=== PATIENT | female | born 1945 | race African-American/Black ===

== ENCOUNTER → 2016-08-14 | Outpatient (CLI) | payer OTHER ==
[~2016-08-14] MED LIST: ATOR20TA PO; LISI10TA6 PO; MELO7.5S PO; NOR10T PO; PRAV20TA3 PO
[2016-08-14 13:21] LABS: Basophils # (auto) 0 uL; Basophils % (auto) 0.6 % (0.0-2.0); Eosinophils # (auto) 0 uL; Eosinophils % (auto) 0.4 % (0.0-7.0); Hematocrit 41.7 % (36.0-46.0); Hemoglobin 13.4 g/dL (12.2-16.2); Lymphocytes # (auto) 1.9 uL; Lymphocytes % (auto) 33.6 % (10.0-50.0); Mean Corpuscular Hemoglobin 30.4 pg (28.0-32.0); Mean Corpuscular Hgb Conc. 32.1 g/dL (32.0-36.0); Mean Corpuscular Volume 94.7 fL (80.0-100.0); Mean Platelet Volume 7.4 fL (7.4-10.4); Monocytes # (auto) 0.4 uL; Monocytes % (auto) 6.5 % (0.0-12.0); Neutrophils # (auto) 3.3 uL; Neutrophils % (auto) 58.9 % (37.0-80.0); Platelet Count (auto) 313 10^3/uL (140-450); Red Cell Distribution Width 13.8 % (11.6-16.0); White Blood Cell 5.6 10^3/uL (4.4-10.8)
[2016-08-14 13:47] LABS: Albumin 3.7 g/dL (3.4-5.0); BUN/Creatinine Ratio 22.4; Bilirubin, Total 0.5 mg/dL (0.2-1.0); Potassium 3.8 mmol/L (3.5-5.1); Total Protein 7.4 g/dL (6.4-8.2)
== END | disposition home or self-care (01) ==
LOC: LAB 12:28
PROVIDERS: ATTEND Internal Medicine
DX: I10 Essential (primary) hypertension (principal)
CPT/HCPCS: 36415; 80053; 85025; 86141

== ENCOUNTER → 2017-04-12 | Outpatient (CLI) | payer OTHER ==
[2017-04-12 10:02] LABS: Basophils # (auto) 0 uL; Basophils % (auto) 0.9 % (0.0-2.0); Eosinophils # (auto) 0 uL; Eosinophils % (auto) 0.7 % (0.0-7.0); Hemoglobin 12.5 g/dL (12.2-16.2); Lymphocytes # (auto) 1.4 uL; Mean Corpuscular Hemoglobin 31.8 pg (28.0-32.0); Mean Corpuscular Hgb Conc. 33.9 g/dL (32.0-36.0); Mean Platelet Volume 6.8 fL (7.4-10.4); Monocytes # (auto) 0.3 uL; Monocytes % (auto) 8.1 % (0.0-12.0); Neutrophils # (auto) 2.4 uL; Neutrophils % (auto) 56.3 % (37.0-80.0); Nucleated Red Blood Cells % 0.1 %; Platelet Count (auto) 228 10^3/uL (140-450); Red Cell Distribution Width 14.1 % (11.6-16.0); White Blood Cell 4.2 10^3/uL (4.4-10.8)
[2017-04-12 10:50] LABS: Urine Bilirubin Negative (Negative); Urine Blood Negative /uL (Negative); Urine Color Yellow (Yellow); Urine Glucose Normal (Normal); Urine Ketone Negative (Negative); Urine Mucus FEW (None Seen); Urine Nitrite Negative (Negative); Urine RBC 2 /hpf (0 - 4); Urine Squamous Epithelial Cell FEW /hpf (<5); Urine Urobilinogen Normal (Negative)
[2017-04-12 10:59] LABS: Albumin 3.6 g/dL (3.4-5.0); BUN/Creatinine Ratio 26.4; Bilirubin, Total 0.3 mg/dL (0.2-1.0); Calcium 8.7 mg/dL (8.5-10.1); Potassium 3.8 mmol/L (3.5-5.1); Total Protein 7.3 g/dL (6.4-8.2)
[2017-04-13 09:12] LABS: Rheumatoid Arthritis Factor 58.2 IU/mL (0.0-13.9)
== END | disposition home or self-care (01) ==
LOC: LAB 09:38
PROVIDERS: ATTEND Internal Medicine
DX: Z12.11 Encounter for screening for malignant neoplasm of colon (principal); E78.00 Pure hypercholesterolemia, unspecified; M25.50 Pain in unspecified joint; I10 Essential (primary) hypertension
CPT/HCPCS: 36415; 80053; 80061; 81001; 82043; 84439; 84443; 85025; 85652; 86038; 86431

== ENCOUNTER → 2017-06-11 | Outpatient (CLI) | payer OTHER ==
[2017-06-11 12:21] LABS: Alcohol, Urine < 3.0 mg/dL (0-5); Amphetamine Screen, Urine NEGATIVE (NEGATIVE); Barbiturate Scree,Urine NEGATIVE (NEGATIVE); Benzodiazephine Screen, Urine NEGATIVE (NEGATIVE); Cannabinoid Screen, Urine NEGATIVE (NEGATIVE); Cocaine Screen, Urine NEGATIVE (NEGATIVE); Opiate Scree,Urine NEGATIVE (NEGATIVE); Phencyclidine Screen, Urine NEGATIVE (NEGATIVE)
== END | disposition home or self-care (01) ==
LOC: LAB 10:11
PROVIDERS: ATTEND Internal Medicine
DX: G89.29 Other chronic pain (principal); F11.90 Opioid use, unspecified, uncomplicated; I10 Essential (primary) hypertension
CPT/HCPCS: 80307

== ENCOUNTER → 2017-06-18 | Outpatient (CLI) | payer OTHER | END | disposition home or self-care (01) | LOC: LAB 10:45 | PROVIDERS: ATTEND Internal Medicine | DX: I10 Essential (primary) hypertension (principal); F11.90 Opioid use, unspecified, uncomplicated | CPT/HCPCS: 80307 ==

== ENCOUNTER → 2017-07-09 | Outpatient (CLI) | payer OTHER | END | disposition home or self-care (01) | LOC: LAB 12:03 | PROVIDERS: ATTEND Internal Medicine | DX: G89.29 Other chronic pain (principal); F11.90 Opioid use, unspecified, uncomplicated | CPT/HCPCS: 80307 ==

== ENCOUNTER → 2017-07-16 | Outpatient (CLI) | payer OTHER | END | disposition home or self-care (01) | LOC: LAB 10:09 | PROVIDERS: ATTEND Internal Medicine | DX: I10 Essential (primary) hypertension (principal); E78.4 Other hyperlipidemia; I50.32 Chronic diastolic (congestive) heart failure | CPT/HCPCS: 80307 ==

== ENCOUNTER → 2017-09-09 | Outpatient (CLI) | payer OTHER ==
[2017-09-09 11:58] LABS: Basophils # (auto) 0 uL; Basophils % (auto) 0.9 % (0.0-2.0); Eosinophils # (auto) 0 uL; Eosinophils % (auto) 0.5 % (0.0-7.0); Hematocrit 40.2 % (36.0-46.0); Hemoglobin 13.4 g/dL (12.2-16.2); Lymphocytes # (auto) 1.7 uL; Lymphocytes % (auto) 31.2 % (10.0-50.0); Mean Corpuscular Hemoglobin 31.3 pg (28.0-32.0); Mean Corpuscular Hgb Conc. 33.4 g/dL (32.0-36.0); Mean Corpuscular Volume 93.8 fL (80.0-100.0); Monocytes # (auto) 0.4 uL; Monocytes % (auto) 6.9 % (0.0-12.0); Neutrophils # (auto) 3.3 uL; Neutrophils % (auto) 60.5 % (37.0-80.0); Nucleated Red Blood Cells % 0.1 %; Platelet Count (auto) 201 10^3/uL (140-450); Red Blood Cells 4.28 10^6/uL (4.0-5.20); Red Cell Distribution Width 13.8 % (11.8-14.3); White Blood Cell 5.4 10^3/uL (4.4-10.8)
[2017-09-09 13:41] LABS: Albumin 3.7 g/dL (3.4-5.0); BUN/Creatinine Ratio 22.7; Bilirubin, Total 0.4 mg/dL (0.2-1.0); CRP High Sensitivity 1.25 mg/dL (< 0.3); Calcium 8.8 mg/dL (8.5-10.1); Potassium 3.5 mmol/L (3.5-5.1); Total Protein 7.7 g/dL (6.4-8.2)
== END | disposition home or self-care (01) ==
LOC: LAB 11:09
PROVIDERS: ATTEND Internal Medicine
DX: I10 Essential (primary) hypertension (principal); M25.50 Pain in unspecified joint
CPT/HCPCS: 36415; 80053; 85025; 86141

== ENCOUNTER 2017-11-04 08:42 | Emergency (ER) | payer OTHER ==
[~2017-11-04] VITALS: Ht 160 cm; Wt 90.7 kg
[2017-11-04 09:36] LABS: Urine Bacteria FEW /hpf (None Seen); Urine Blood 1+ /uL (Negative); Urine Specific Gravity 1.022 (1.001-1.035); Urine WBC 2 /hpf (0 - 5)
[2017-11-04 09:40] LABS: Basophils # (auto) 0 uL; Basophils % (auto) 0.7 % (0.0-2.0); Eosinophils # (auto) 0 uL; Eosinophils % (auto) 0.5 % (0.0-7.0); Hematocrit 38.9 % (36.0-46.0); Lymphocytes # (auto) 1.1 uL; Lymphocytes % (auto) 25.8 % (10.0-50.0); Mean Corpuscular Hemoglobin 31.4 pg (28.0-32.0); Mean Corpuscular Hgb Conc. 33.4 g/dL (32.0-36.0); Mean Corpuscular Volume 93.8 fL (80.0-100.0); Monocytes # (auto) 0.4 uL; Monocytes % (auto) 8.5 % (0.0-12.0); Neutrophils # (auto) 2.9 uL; Neutrophils % (auto) 64.5 % (37.0-80.0); Platelet Count (auto) 238 10^3/uL (140-450); Red Blood Cells 4.14 10^6/uL (4.0-5.20); Red Cell Distribution Width 14.1 % (11.8-14.3); White Blood Cell 4.4 10^3/uL (4.4-10.8)
[2017-11-04 09:59] LABS: Albumin 3.6 g/dL (3.4-5.0); BUN/Creatinine Ratio 29.3; Bilirubin, Total 0.4 mg/dL (0.2-1.0); Calcium 8.4 mg/dL (8.5-10.1); Potassium 3.6 mmol/L (3.5-5.1); Total Protein 7.2 g/dL (6.4-8.2)
[2017-11-04 10:27] VITALS: BP 116/71
== END 2017-11-04 11:06 | disposition home or self-care (01) ==
LOC: ER 08:42
DX: D25.9 Leiomyoma of uterus, unspecified (principal); I10 Essential (primary) hypertension; E78.5 Hyperlipidemia, unspecified; G89.29 Other chronic pain; M54.5 Low back pain
CPT/HCPCS: 36415; 74176; 80053; 81001; 85025

== ENCOUNTER → 2018-04-11 | Outpatient (CLI) | payer OTHER ==
[2018-04-11 11:25] LABS: Urine Bacteria FEW /hpf (None Seen); Urine Blood Negative /uL (Negative); Urine Specific Gravity 1.022 (1.001-1.035); Urine WBC 1 /hpf (0 - 5)
[2018-04-11 12:27] LABS: Basophils # (auto) 0 uL; Basophils % (auto) 0.8 % (0.0-2.0); Eosinophils # (auto) 0 uL; Eosinophils % (auto) 0.4 % (0.0-7.0); Hematocrit 39.8 % (36.0-46.0); Hemoglobin 13.8 g/dL (12.2-16.2); Lymphocytes # (auto) 1.5 uL; Lymphocytes % (auto) 34.7 % (10.0-50.0); Mean Corpuscular Hemoglobin 32.3 pg (28.0-32.0); Mean Corpuscular Hgb Conc. 34.5 g/dL (32.0-36.0); Mean Corpuscular Volume 93.5 fL (80.0-100.0); Monocytes # (auto) 0.3 uL; Monocytes % (auto) 7.6 % (0.0-12.0); Neutrophils # (auto) 2.5 uL; Neutrophils % (auto) 56.5 % (37.0-80.0); Nucleated Red Blood Cells % 0.2 %; Platelet Count (auto) 258 10^3/uL (140-450); Red Blood Cells 4.26 10^6/uL (4.0-5.20); Red Cell Distribution Width 13.7 % (11.8-14.3); White Blood Cell 4.4 10^3/uL (4.4-10.8)
[2018-04-11 13:12] LABS: Albumin 3.7 g/dL (3.4-5.0); BUN/Creatinine Ratio 26.5; Bilirubin, Total 0.3 mg/dL (0.2-1.0); CRP High Sensitivity 1.79 mg/dL (< 0.3); Calcium 8.8 mg/dL (8.5-10.1); Potassium 3.5 mmol/L (3.5-5.1); Total Protein 7.8 g/dL (6.4-8.2)
== END | disposition home or self-care (01) ==
LOC: LAB 10:46
PROVIDERS: ATTEND Internal Medicine
DX: I10 Essential (primary) hypertension (principal); E78.5 Hyperlipidemia, unspecified; M25.50 Pain in unspecified joint
CPT/HCPCS: 36415; 80053; 80061; 81001; 82043; 84439; 84443; 85025; 85652; 86141; 86200; 86431

== ENCOUNTER → 2018-10-08 | Outpatient (CLI) | payer OTHER ==
[2018-10-08 10:00] LABS: Basophils # (auto) 0 uL; Basophils % (auto) 0.7 % (0.0-2.0); Eosinophils # (auto) 0 uL; Eosinophils % (auto) 0.8 % (0.0-7.0); Hematocrit 39.1 % (36.0-46.0); Lymphocytes # (auto) 1.5 uL; Lymphocytes % (auto) 33.6 % (10.0-50.0); Mean Corpuscular Hemoglobin 31.2 pg (28.0-32.0); Mean Corpuscular Hgb Conc. 33.2 g/dL (32.0-36.0); Mean Corpuscular Volume 93.9 fL (80.0-100.0); Monocytes # (auto) 0.4 uL; Neutrophils # (auto) 2.5 uL; Neutrophils % (auto) 55.9 % (37.0-80.0); Platelet Count (auto) 239 10^3/uL (140-450); Red Blood Cells 4.16 10^6/uL (4.0-5.20); Red Cell Distribution Width 14.3 % (11.8-14.3); White Blood Cell 4.5 10^3/uL (4.4-10.8)
[2018-10-08 10:45] LABS: Albumin 3.5 g/dL (3.4-5.0); BUN/Creatinine Ratio 33.3; Bilirubin, Total 0.3 mg/dL (0.2-1.0); Calcium 8.8 mg/dL (8.5-10.1); Total Protein 7.3 g/dL (6.4-8.2)
[2018-10-08 10:48] LABS: Potassium 4.2 mmol/L (3.5-5.1)
== END | disposition home or self-care (01) ==
LOC: LAB 09:40
PROVIDERS: ATTEND Internal Medicine
DX: E04.9 Nontoxic goiter, unspecified (principal); E78.5 Hyperlipidemia, unspecified; I10 Essential (primary) hypertension
CPT/HCPCS: 36415; 80053; 80061; 84439; 84443; 85025

== ENCOUNTER → 2019-03-16 | Outpatient (CLI) | payer OTHER | END | disposition home or self-care (01) | LOC: LAB 15:57 | PROVIDERS: ATTEND Internal Medicine | DX: L72.3 Sebaceous cyst (principal); R10.9 Unspecified abdominal pain | CPT/HCPCS: 82270; 87077; 87186; 87205 ==

== ENCOUNTER → 2020-09-16 | Outpatient (CLI) | payer OTHER ==
[~2020-09-16] MED LIST changes: +LISI-648 PO; -LISI10TA6 PO
[2020-09-16 11:15] LABS: Basophils # (auto) 0 10 ^3/uL (0-0.2); Basophils % (auto) 0.5 % (0.0-2.0); Eosinophils # (auto) 0 10 ^3/uL (0-0.8); Eosinophils % (auto) 0.8 % (0.0-7.0); Hematocrit 33.3 % (36.0-46.0); Hemoglobin 11.3 g/dL (12.2-16.2); Lymphocytes # (auto) 1.6 10 ^3/uL (0.4-5.4); Lymphocytes % (auto) 31.8 % (10.0-50.0); Mean Corpuscular Hemoglobin 31.7 pg (28.0-32.0); Mean Corpuscular Hgb Conc. 33.9 g/dL (32.0-36.0); Mean Corpuscular Volume 93.7 fL (80.0-100.0); Monocytes # (auto) 0.5 10 ^3/uL (0-1.3); Monocytes % (auto) 9.5 % (0.0-12.0); Neutrophils # (auto) 2.9 10 ^3/uL (1.6-8.6); Neutrophils % (auto) 57.4 % (37.0-80.0); Nucleated Red Blood Cells % 0.1 %; Platelet Count (auto) 245 10^3/uL (140-450); Red Blood Cells 3.56 10^6/uL (4.0-5.20); Red Cell Distribution Width 13.7 % (11.8-14.3)
[2020-09-16 11:38] LABS: Urine Bacteria NONE SEEN /hpf (None Seen); Urine Blood Negative /uL (Negative); Urine Specific Gravity 1.007 (1.001-1.035); Urine WBC 3 /hpf (0 - 5)
[2020-09-16 11:49] LABS: Potassium 3.5 mmol/L (3.5-5.1)
[2020-09-16 11:58] LABS: Albumin 3.5 g/dL (3.4-5.0); BUN/Creatinine Ratio 16.5; Bilirubin, Total 0.4 mg/dL (0.2-1.0); Calcium 8.4 mg/dL (8.5-10.1); Total Protein 7.1 g/dL (6.4-8.2)
== END | disposition home or self-care (01) ==
LOC: LAB 10:45
PROVIDERS: ATTEND Internal Medicine
DX: I10 Essential (primary) hypertension (principal); R35.1 Nocturia; R60.0 Localized edema
CPT/HCPCS: 36415; 80053; 80061; 81001; 83036; 84439; 84443; 85025; 85652

== ENCOUNTER → 2020-09-29 | Outpatient (CLI) | payer OTHER ==
[~2020-09-29] MED LIST changes: +ASPI1TAB19 PO; +FURO40TA4 PO; +HYDR50TA15 PO; +LISI-285 PO; +PERCOT PO
[2020-09-29 16:27] LABS: Albumin 3.6 g/dL (3.4-5.0); Potassium 3.2 mmol/L (3.5-5.1)
[2020-09-29 16:30] LABS: BUN/Creatinine Ratio 15.5; Bilirubin, Total 0.3 mg/dL (0.2-1.0); Total Protein 7.2 g/dL (6.4-8.2)
== END | disposition home or self-care (01) ==
LOC: LAB 15:27
PROVIDERS: ATTEND Internal Medicine
DX: I10 Essential (primary) hypertension (principal)
CPT/HCPCS: 36415; 80053

== ENCOUNTER → 2020-10-11 | Outpatient (CLI) | payer OTHER ==
[~2020-10-11] MED LIST changes: -ATOR20TA PO; -LISI-648 PO; -MELO7.5S PO; -NOR10T PO
[2020-10-11 16:21] LABS: Basophils # (auto) 0 10 ^3/uL (0-0.2); Basophils % (auto) 0.6 % (0.0-2.0); Eosinophils # (auto) 0 10 ^3/uL (0-0.8); Eosinophils % (auto) 0.5 % (0.0-7.0); Hematocrit 29.9 % (36.0-46.0); Hemoglobin 10.3 g/dL (12.2-16.2); Lymphocytes # (auto) 1.2 10 ^3/uL (0.4-5.4); Lymphocytes % (auto) 21.2 % (10.0-50.0); Mean Corpuscular Hemoglobin 31.7 pg (28.0-32.0); Mean Corpuscular Hgb Conc. 34.5 g/dL (32.0-36.0); Mean Corpuscular Volume 91.8 fL (80.0-100.0); Monocytes # (auto) 0.6 10 ^3/uL (0-1.3); Monocytes % (auto) 10.2 % (0.0-12.0); Neutrophils # (auto) 3.9 10 ^3/uL (1.6-8.6); Neutrophils % (auto) 67.5 % (37.0-80.0); Nucleated Red Blood Cells % 0.1 %; Platelet Count (auto) 243 10^3/uL (140-450); Red Blood Cells 3.26 10^6/uL (4.0-5.20); Red Cell Distribution Width 12.9 % (11.8-14.3); White Blood Cell 5.7 10^3/uL (4.4-10.8)
[2020-10-11 17:43] LABS: BUN/Creatinine Ratio 18.6; Calcium 8.3 mg/dL (8.5-10.1); Potassium 3.4 mmol/L (3.5-5.1)
== END | disposition home or self-care (01) ==
LOC: LAB 15:39
PROVIDERS: ATTEND Internal Medicine
DX: I10 Essential (primary) hypertension (principal)
CPT/HCPCS: 36415; 80048; 85025

== ENCOUNTER → 2020-10-20 | Outpatient (CLI) | payer OTHER ==
[~2020-10-20] MED LIST changes: +IOHEXOL 300 MG/ML 100ML BOTTLE IJ ONE; +LIDOCAINE 2%HCL (LOCAL ANESTH.) INJ 20ML MDV ONE
== END | disposition home or self-care (01) ==
LOC: XYW 15:10
PROVIDERS: ATTEND Internal Medicine
DX: T83.098A Other mechanical complication of other urinary catheter, initial encounter (principal); Z98.890 Other specified postprocedural states; Z79.899 Other long term (current) drug therapy
CPT/HCPCS: 50435; Q9967; 75984; 76000

== ENCOUNTER 2020-10-21 08:19 | Emergency (ER) | payer OTHER ==
[~2020-10-21] VITALS: Ht 157.5 cm; Wt 77.6 kg
[~2020-10-21 08:19] MED LIST changes: -IOHEXOL 300 MG/ML 100ML BOTTLE IJ ONE; -LIDOCAINE 2%HCL (LOCAL ANESTH.) INJ 20ML MDV ONE
[2020-10-21 09:44] LABS: Basophils # (auto) 0 10 ^3/uL (0-0.2); Basophils % (auto) 0.5 % (0.0-2.0); Eosinophils # (auto) 0 10 ^3/uL (0-0.8); Hematocrit 27.4 % (36.0-46.0); Hemoglobin 9.3 g/dL (12.2-16.2); Lymphocytes # (auto) 0.9 10 ^3/uL (0.4-5.4); Lymphocytes % (auto) 19.9 % (10.0-50.0); Mean Corpuscular Hemoglobin 32.2 pg (28.0-32.0); Mean Corpuscular Hgb Conc. 33.7 g/dL (32.0-36.0); Mean Corpuscular Volume 95.5 fL (80.0-100.0); Monocytes # (auto) 0.5 10 ^3/uL (0-1.3); Monocytes % (auto) 11.3 % (0.0-12.0); Neutrophils % (auto) 67.3 % (37.0-80.0); Platelet Count (auto) 229 10^3/uL (140-450); Red Blood Cells 2.87 10^6/uL (4.0-5.20); Red Cell Distribution Width 14.2 % (11.8-14.3); White Blood Cell 4.5 10^3/uL (4.4-10.8)
[2020-10-21 09:52] LABS: Albumin 3.2 g/dL (3.4-5.0); Calcium 8.2 mg/dL (8.5-10.1); Potassium 3.4 mmol/L (3.5-5.1)
[2020-10-21 09:57] LABS: BUN/Creatinine Ratio 16.7; Bilirubin, Total 0.4 mg/dL (0.2-1.0); Total Protein 6.6 g/dL (6.4-8.2)
[2020-10-21 10:06] LABS: INR 1.04 (0.9-1.15); Partial Thromboplastin Time 23.7 sec (23.0-31.2)
[2020-10-21 13:00] VITALS: BP 143/70
[2020-10-21] MEDS ORDERED: fentaNYL CITRATE 100 MCG/2 ML VL ONE (15:49)
[2020-10-21] MEDS ORDERED: MIDAZOLAM HCL 1MG/1ML-2 ML VIAL ONE (15:50)
[2020-10-21] MEDS ORDERED: LIDOCAINE 2%HCL (LOCAL ANESTH.) INJ 20ML MDV ONE (15:55)
[2020-10-21] MEDS ORDERED: IODIXANOL 320MG/ML 100ML BTL IV ONE (15:55)
== END 2020-10-21 13:19 | disposition home or self-care (01) ==
LOC: ER 08:19
DX: N13.30 Unspecified hydronephrosis (principal); Z20.822 Contact with and (suspected) exposure to COVID-19
CPT/HCPCS: 36415; 76942; 80053; 85025; 85610; 85730; 87426; 99285; C1729; C1769; C1887; C1894; C9803; J1644; J2250; J3010; J7030; Q9967; U0003; 74425; 99152; 99153

== ENCOUNTER → 2020-10-24 | Outpatient (CLI) | payer OTHER ==
[2020-10-24 14:27] LABS: Basophils # (auto) 0 10 ^3/uL (0-0.2); Basophils % (auto) 0.7 % (0.0-2.0); Eosinophils # (auto) 0 10 ^3/uL (0-0.8); Eosinophils % (auto) 1.2 % (0.0-7.0); Hematocrit 29.7 % (36.0-46.0); Hemoglobin 10.2 g/dL (12.2-16.2); Lymphocytes % (auto) 26.1 % (10.0-50.0); Mean Corpuscular Hemoglobin 31.8 pg (28.0-32.0); Mean Corpuscular Hgb Conc. 34.4 g/dL (32.0-36.0); Mean Corpuscular Volume 92.5 fL (80.0-100.0); Monocytes # (auto) 0.4 10 ^3/uL (0-1.3); Monocytes % (auto) 10.1 % (0.0-12.0); Neutrophils # (auto) 2.3 10 ^3/uL (1.6-8.6); Neutrophils % (auto) 61.9 % (37.0-80.0); Nucleated Red Blood Cells % 0.1 %; Platelet Count (auto) 296 10^3/uL (140-450); Red Blood Cells 3.21 10^6/uL (4.0-5.20); Red Cell Distribution Width 13.9 % (11.8-14.3); White Blood Cell 3.7 10^3/uL (4.4-10.8)
[2020-10-24 14:50] LABS: Potassium 3.4 mmol/L (3.5-5.1)
[2020-10-24 14:58] LABS: Albumin 3.5 g/dL (3.4-5.0); BUN/Creatinine Ratio 18.4; Bilirubin, Total 0.4 mg/dL (0.2-1.0); Calcium 8.6 mg/dL (8.5-10.1); Total Protein 7.2 g/dL (6.4-8.2)
[2020-10-24 16:29] LABS: Hepatitis A Ab IgM Negative; Hepatitis B Core IgM Negative; Hepatitis B Surface Antigen Negative (Negative); Hepatitis C Antibody Negative (Negative)
== END | disposition home or self-care (01) ==
LOC: LAB 14:07
PROVIDERS: ATTEND Internal Medicine
DX: C67.9 Malignant neoplasm of bladder, unspecified (principal)
CPT/HCPCS: 36415; 80053; 80074; 83615; 85025

== ENCOUNTER 2020-11-16 07:04 | Day surgery (SDC) | payer OTHER ==
[2020-11-15 10:18] LABS: Basophils # (auto) 0 10 ^3/uL (0-0.2); Eosinophils # (auto) 0.1 10 ^3/uL (0-0.8); Eosinophils % (auto) 1.4 % (0.0-7.0); Hematocrit 29.2 % (36.0-46.0); Hemoglobin 9.9 g/dL (12.2-16.2); Lymphocytes # (auto) 1.2 10 ^3/uL (0.4-5.4); Lymphocytes % (auto) 25.2 % (10.0-50.0); Mean Corpuscular Hemoglobin 31.9 pg (28.0-32.0); Mean Corpuscular Volume 93.7 fL (80.0-100.0); Monocytes # (auto) 0.5 10 ^3/uL (0-1.3); Monocytes % (auto) 9.6 % (0.0-12.0); Neutrophils # (auto) 2.9 10 ^3/uL (1.6-8.6); Neutrophils % (auto) 62.8 % (37.0-80.0); Nucleated Red Blood Cells % 0.1 %; Platelet Count (auto) 282 10^3/uL (140-450); Red Blood Cells 3.11 10^6/uL (4.0-5.20); Red Cell Distribution Width 14.2 % (11.8-14.3); White Blood Cell 4.7 10^3/uL (4.4-10.8)
[2020-11-15 10:30] LABS: INR 1.03 (0.9-1.15); Partial Thromboplastin Time 28.1 sec (23.0-31.2)
[2020-11-15 10:33] LABS: Albumin 3.3 g/dL (3.4-5.0); Calcium 9.1 mg/dL (8.5-10.1); Potassium 3.8 mmol/L (3.5-5.1)
[2020-11-15 10:36] LABS: BUN/Creatinine Ratio 16.8; Bilirubin, Total 0.4 mg/dL (0.2-1.0)
[2020-11-15 10:37] LABS: Urine Bacteria FEW /hpf (None Seen); Urine Blood 2+ /uL (Negative); Urine Specific Gravity 1.015 (1.001-1.035); Urine WBC 89 /hpf (0 - 5); Urine WBC Clumps PRESENT /hpf (None Seen)
[~2020-11-16] VITALS: Ht 160 cm; Wt 80.7 kg
[~2020-11-16 07:04] MED LIST changes: +ALPR0.254 PO; +ASPI-123 PO; -ASPI1TAB19 PO; +ONDA-155 PO; +PROC10TA2 PO
[2020-11-16] MEDS ORDERED: LIDOCAINE 1% HCL (LOCAL ANESTH.) INJ 20ML MDV ONE ×2 (07:30→10:30)
[2020-11-16] MEDS ORDERED: ceFAZolin 1GM VL ONE (07:30)
[2020-11-16] MEDS ORDERED: HEPARIN 1,000 UNITS/ml 1ML VIAL ONE ×2 (07:31→13:56)
[2020-11-16] MEDS ORDERED: HEPARIN SODIUM (PORCINE) 5000 UNITS/ML 1ML VIAL ONE (07:31)
[2020-11-16] MEDS ORDERED: ceFAZolin 1GM/50ML 100 ML IV ONE (08:40)
[2020-11-16] MEDS ORDERED: ONDANSETRON HCL 4 MG/2 ML VIAL ONE (09:32)
[2020-11-16] MEDS ORDERED: MIDAZOLAM HCL 1MG/1ML-2 ML VIAL ONE ×2 (09:32→13:35)
[2020-11-16] MEDS ORDERED: GLYCOPYRROLATE 0.2 MG/ML 1ML VIAL ONE (09:32)
[2020-11-16] MEDS ORDERED: PROPOFOL 10 MG/ML 20 ML IV ONE (09:32)
[2020-11-16] MEDS ORDERED: fentaNYL CITRATE 100 MCG/2 ML VL ONE ×2 (09:32→13:35)
[2020-11-16] MEDS ORDERED: HYDROmorphone HCL 2 MG/ML VL ONE (10:21)
[2020-11-16] MEDS ORDERED: HYDROmorphone HCL 2 MG/ML VL IV PRN (11:00)
[2020-11-16] MEDS ORDERED: ONDANSETRON HCL 4 MG/2 ML VIAL IV PRN (11:00)
[2020-11-16 12:30] VITALS: BP 135/73
[2020-11-16] MEDS ORDERED: LIDOCAINE 2%HCL (LOCAL ANESTH.) INJ 20ML MDV ONE (13:05)
[2020-11-16] MEDS ORDERED: PRAV20TA3 PO (13:46)
[2020-11-16] MEDS ORDERED: IOHEXOL 350 MG/ML 100ML IJ ONE (13:55)
[2020-11-16] MEDS ORDERED: SODIUM CHL 0.9% 0 ML ONE (14:02)
[2020-11-16] MEDS ORDERED: VANCOMYCIN HCL 1000 MG VL ONE (14:02)
[2020-11-16] MEDS ORDERED: LIDOCAINE W/ EPINEPHRINE 2% INJ 20ML VIAL ONE (14:03)
== END 2020-11-16 16:19 | disposition home or self-care (01) ==
LOC: SUR 07:04
PROVIDERS: ATTEND Surgery
DX: Z45.2 Encounter for adjustment and management of vascular access device (principal); C67.9 Malignant neoplasm of bladder, unspecified; N18.9 Chronic kidney disease, unspecified; I10 Essential (primary) hypertension; D68.69 Other thrombophilia; E78.00 Pure hypercholesterolemia, unspecified; M19.90 Unspecified osteoarthritis, unspecified site; I73.9 Peripheral vascular disease, unspecified; Z20.822 Contact with and (suspected) exposure to COVID-19; Z98.890 Other specified postprocedural states; Z79.899 Other long term (current) drug therapy; Z85.528 Personal history of other malignant neoplasm of kidney; Z87.891 Personal history of nicotine dependence; Z79.82 Long term (current) use of aspirin; Z68.31 Body mass index [BMI] 31.0-31.9, adult
CPT/HCPCS: 36415; 36561; 71045; 76881; 76942; 80053; 81001; 85025; 85610; 85730; C1788; C1894; J0690; J1170; J1644; J2001; J2250; J2405; J2704; J3010; J3370; J7030; J7040; Q9967; U0003; 76000; 99152; 99153

== ENCOUNTER → 2020-12-01 | Outpatient (CLI) | payer OTHER ==
[~2020-12-01] MED LIST changes: -ALPR0.254 PO
[2020-12-01 08:03] LABS: Basophils # (auto) 0 10 ^3/uL (0-0.2); Basophils % (auto) 0.5 % (0.0-2.0); Eosinophils # (auto) 0.1 10 ^3/uL (0-0.8); Eosinophils % (auto) 1.1 % (0.0-7.0); Hematocrit 29.8 % (36.0-46.0); Hemoglobin 10.1 g/dL (12.2-16.2); Lymphocytes % (auto) 17.1 % (10.0-50.0); Mean Corpuscular Hemoglobin 31.4 pg (28.0-32.0); Mean Corpuscular Hgb Conc. 33.7 g/dL (32.0-36.0); Mean Corpuscular Volume 93.1 fL (80.0-100.0); Monocytes # (auto) 0.5 10 ^3/uL (0-1.3); Monocytes % (auto) 8.1 % (0.0-12.0); Neutrophils # (auto) 4.2 10 ^3/uL (1.6-8.6); Neutrophils % (auto) 73.2 % (37.0-80.0); Nucleated Red Blood Cells % 0.1 %; Platelet Count (auto) 315 10^3/uL (140-450); Red Cell Distribution Width 13.9 % (11.8-14.3); White Blood Cell 5.7 10^3/uL (4.4-10.8)
[2020-12-01 08:53] LABS: Albumin 3.4 g/dL (3.4-5.0); Calcium 8.3 mg/dL (8.5-10.1); Potassium 3.8 mmol/L (3.5-5.1)
[2020-12-01 08:57] LABS: BUN/Creatinine Ratio 17.2; Bilirubin, Total 0.3 mg/dL (0.2-1.0); Total Protein 6.6 g/dL (6.4-8.2)
== END | disposition home or self-care (01) ==
LOC: LAB 07:45
PROVIDERS: ATTEND Internal Medicine
DX: C67.9 Malignant neoplasm of bladder, unspecified (principal)
CPT/HCPCS: 36415; 80053; 83615; 85025

== ENCOUNTER → 2020-12-09 | Outpatient (CLI) | payer OTHER ==
[2020-12-09 08:23] LABS: Basophils # (auto) 0 10 ^3/uL (0-0.2); Basophils % (auto) 0.7 % (0.0-2.0); Eosinophils # (auto) 0 10 ^3/uL (0-0.8); Eosinophils % (auto) 1.2 % (0.0-7.0); Hematocrit 28.3 % (36.0-46.0); Hemoglobin 9.6 g/dL (12.2-16.2); Lymphocytes # (auto) 0.8 10 ^3/uL (0.4-5.4); Lymphocytes % (auto) 27.5 % (10.0-50.0); Mean Corpuscular Hemoglobin 31.7 pg (28.0-32.0); Mean Corpuscular Hgb Conc. 33.9 g/dL (32.0-36.0); Mean Corpuscular Volume 93.5 fL (80.0-100.0); Monocytes # (auto) 0.1 10 ^3/uL (0-1.3); Monocytes % (auto) 2.2 % (0.0-12.0); Neutrophils # (auto) 1.9 10 ^3/uL (1.6-8.6); Neutrophils % (auto) 68.4 % (37.0-80.0); Nucleated Red Blood Cells % 0.1 %; Platelet Count (auto) 231 10^3/uL (140-450); Red Blood Cells 3.03 10^6/uL (4.0-5.20); Red Cell Distribution Width 13.7 % (11.8-14.3); White Blood Cell 2.8 10^3/uL (4.4-10.8)
[2020-12-09 08:56] LABS: Calcium 8.3 mg/dL (8.5-10.1); Potassium 3.7 mmol/L (3.5-5.1)
[2020-12-09 08:59] LABS: BUN/Creatinine Ratio 17.7; Bilirubin, Total 0.4 mg/dL (0.2-1.0); Total Protein 6.5 g/dL (6.4-8.2)
== END | disposition home or self-care (01) ==
LOC: LAB 07:49
PROVIDERS: ATTEND Internal Medicine
DX: C67.9 Malignant neoplasm of bladder, unspecified (principal)
CPT/HCPCS: 36415; 80053; 83615; 85025

== ENCOUNTER → 2020-12-23 | Outpatient (CLI) | payer OTHER ==
[~2020-12-23] MED LIST changes: +MIDAZOLAM HCL 5 MG/ML-1ML VIAL ONE; +SODIUM CHLORIDE LOCK 10 ML ONE; +diphenhdrAMINE HCL 50 MG/1 ML VL ONE; +fentaNYL CITRATE 100 MCG/2 ML VL ONE
[2020-12-23 10:45] LABS: Basophils # (auto) 0 10 ^3/uL (0-0.2); Eosinophils # (auto) 0 10 ^3/uL (0-0.8); Eosinophils % (auto) 0.6 % (0.0-7.0); Hemoglobin 8.4 g/dL (12.2-16.2); Monocytes # (auto) 0.1 10 ^3/uL (0-1.3); Monocytes % (auto) 10.5 % (0.0-12.0); Neutrophils # (auto) 0.2 10 ^3/uL (1.6-8.6); Red Cell Distribution Width 12.7 % (11.8-14.3)
[2020-12-23 10:47] LABS: Basophils % (auto) 0.2 % (0.0-2.0); Hematocrit 23.9 % (36.0-46.0); Lymphocytes # (auto) 0.7 10 ^3/uL (0.4-5.4); Mean Corpuscular Hemoglobin 31.7 pg (28.0-32.0); Mean Corpuscular Hgb Conc. 35.1 g/dL (32.0-36.0); Mean Corpuscular Volume 90.4 fL (80.0-100.0); Neutrophils % (auto) 17.5 % (37.0-80.0); Nucleated Red Blood Cells % 0.7 %; Platelet Count (auto) 138 10^3/uL (140-450); Red Blood Cells 2.64 10^6/uL (4.0-5.20)
[2020-12-23 11:11] LABS: Lymphocytes % (auto) 71.2 % (10.0-50.0); White Blood Cell 0.9 10^3/uL (4.4-10.8)
[2020-12-23 11:36] LABS: Potassium 3.3 mmol/L (3.5-5.1)
[2020-12-23 11:46] LABS: BUN/Creatinine Ratio 12.8; Bilirubin, Total 0.3 mg/dL (0.2-1.0); Calcium 8.6 mg/dL (8.5-10.1); Total Protein 6.8 g/dL (6.4-8.2)
== END | disposition home or self-care (01) ==
LOC: LAB 10:02
PROVIDERS: ATTEND Internal Medicine
DX: C67.9 Malignant neoplasm of bladder, unspecified (principal)
CPT/HCPCS: 36415; 80053; 83615; 85025; J1200; J2250; J3010

== ENCOUNTER → 2020-12-30 | Outpatient (CLI) | payer OTHER ==
[~2020-12-30] MED LIST changes: -MIDAZOLAM HCL 5 MG/ML-1ML VIAL ONE; -SODIUM CHLORIDE LOCK 10 ML ONE; -diphenhdrAMINE HCL 50 MG/1 ML VL ONE; -fentaNYL CITRATE 100 MCG/2 ML VL ONE
[2020-12-30 08:27] LABS: Red Cell Distribution Width 13.2 % (11.8-14.3)
[2020-12-30 08:29] LABS: Hematocrit 25.7 % (36.0-46.0); Hemoglobin 8.9 g/dL (12.2-16.2); Mean Corpuscular Hemoglobin 31.5 pg (28.0-32.0); Mean Corpuscular Hgb Conc. 34.7 g/dL (32.0-36.0); Mean Corpuscular Volume 90.7 fL (80.0-100.0); Platelet Count (auto) 504 10^3/uL (140-450); Red Blood Cells 2.84 10^6/uL (4.0-5.20)
[2020-12-30 08:35] LABS: Potassium 3.2 mmol/L (3.5-5.1)
[2020-12-30 08:41] LABS: Albumin 3.1 g/dL (3.4-5.0); BUN/Creatinine Ratio 12.9; Bilirubin, Total 0.2 mg/dL (0.2-1.0); Calcium 8.5 mg/dL (8.5-10.1); Total Protein 7.1 g/dL (6.4-8.2)
[2020-12-30 08:43] LABS: Basophils % (manual) 0 (0.0-2.0); Blast Cells 0; Eosinophils % (manual) 0 (0-7); Promyelocytes % 0; Reactive Lymphocytes 0
[2020-12-30 12:49] LABS: Band Neutrophils % (manual) 8; Lymphocytes % (manual) 34 (10.0-50.0); Metamyelocytes % 3; Monocytes % (manual) 13 (0-12); Myelocytes % 4
== END | disposition home or self-care (01) ==
LOC: LAB 07:43
PROVIDERS: ATTEND Internal Medicine
DX: C67.9 Malignant neoplasm of bladder, unspecified (principal)
CPT/HCPCS: 36415; 80053; 83615; 85007; 85027

== ENCOUNTER → 2021-01-04 | Outpatient (CLI) | payer OTHER ==
[~2021-01-04] MED LIST changes: +IOHEXOL 300 MG/ML 100ML BOTTLE IJ ONE; +LIDOCAINE 2%HCL (LOCAL ANESTH.) INJ 20ML MDV ONE
== END | disposition home or self-care (01) ==
LOC: XY 09:41
PROVIDERS: ATTEND Internal Medicine
DX: Z43.6 Encounter for attention to other artificial openings of urinary tract (principal); Z98.890 Other specified postprocedural states; Z79.899 Other long term (current) drug therapy; Z86.718 Personal history of other venous thrombosis and embolism
CPT/HCPCS: 50435; 75984; C1729; C1769; Q9967

== ENCOUNTER → 2021-01-06 | Outpatient (CLI) | payer OTHER ==
[~2021-01-06] MED LIST changes: -IOHEXOL 300 MG/ML 100ML BOTTLE IJ ONE; -LIDOCAINE 2%HCL (LOCAL ANESTH.) INJ 20ML MDV ONE
[2021-01-06 10:10] LABS: Eosinophils # (auto) 0 10 ^3/uL (0-0.8); Hemoglobin 8.1 g/dL (12.2-16.2); Lymphocytes # (auto) 0.6 10 ^3/uL (0.4-5.4); Monocytes # (auto) 0.6 10 ^3/uL (0-1.3)
[2021-01-06 10:12] LABS: Basophils # (auto) 0 10 ^3/uL (0-0.2); Basophils % (auto) 0.1 % (0.0-2.0); Eosinophils % (auto) 0.1 % (0.0-7.0); Hematocrit 23.7 % (36.0-46.0); Lymphocytes % (auto) 2.4 % (10.0-50.0); Mean Corpuscular Hemoglobin 31.5 pg (28.0-32.0); Mean Corpuscular Hgb Conc. 34.4 g/dL (32.0-36.0); Mean Corpuscular Volume 91.6 fL (80.0-100.0); Monocytes % (auto) 2.4 % (0.0-12.0); Neutrophils # (auto) 24.3 10 ^3/uL (1.6-8.6); Platelet Count (auto) 366 10^3/uL (140-450); Red Blood Cells 2.58 10^6/uL (4.0-5.20); White Blood Cell 25.6 10^3/uL (4.4-10.8)
[2021-01-06 10:32] LABS: Albumin 2.8 g/dL (3.4-5.0); Calcium 8.2 mg/dL (8.5-10.1); Potassium 3.3 mmol/L (3.5-5.1)
[2021-01-06 10:35] LABS: BUN/Creatinine Ratio 12.2; Bilirubin, Total 0.3 mg/dL (0.2-1.0); Total Protein 6.8 g/dL (6.4-8.2)
== END | disposition home or self-care (01) ==
LOC: LAB 09:55
PROVIDERS: ATTEND Internal Medicine
DX: C67.9 Malignant neoplasm of bladder, unspecified (principal)
CPT/HCPCS: 36415; 80053; 83615; 85025

== ENCOUNTER → 2021-01-19 | Outpatient (CLI) | payer OTHER ==
[2021-01-19 08:35] LABS: Hemoglobin 7.3 g/dL (12.2-16.2); Mean Corpuscular Hemoglobin 31.4 pg (28.0-32.0); Mean Corpuscular Hgb Conc. 34.6 g/dL (32.0-36.0); Mean Corpuscular Volume 90.9 fL (80.0-100.0); Platelet Count (auto) 107 10^3/uL (140-450); Red Blood Cells 2.31 10^6/uL (4.0-5.20); Red Cell Distribution Width 14.5 % (11.8-14.3); White Blood Cell 7.4 10^3/uL (4.4-10.8)
[2021-01-19 08:39] LABS: Basophils % (manual) 0 (0.0-2.0); Blast Cells 0; Eosinophils % (manual) 0 (0-7); Metamyelocytes % 0; Promyelocytes % 0; Reactive Lymphocytes 0
[2021-01-19 09:03] LABS: Band Neutrophils % (manual) 14; Lymphocytes % (manual) 13 (10.0-50.0); Monocytes % (manual) 3 (0-12); Myelocytes % 3
[2021-01-19 09:04] LABS: Albumin 2.5 g/dL (3.4-5.0); Calcium 8.5 mg/dL (8.5-10.1); Potassium 3.6 mmol/L (3.5-5.1)
[2021-01-19 09:09] LABS: BUN/Creatinine Ratio 14.6; Bilirubin, Total 0.2 mg/dL (0.2-1.0); Total Protein 6.9 g/dL (6.4-8.2)
== END | disposition home or self-care (01) ==
LOC: LAB 08:09
PROVIDERS: ATTEND Internal Medicine
DX: C67.9 Malignant neoplasm of bladder, unspecified (principal)
CPT/HCPCS: 36415; 80053; 83615; 85007; 85027

== ENCOUNTER → 2021-01-26 | Outpatient (CLI) | payer OTHER ==
[2021-01-26 08:07] LABS: Hematocrit 20.4 % (36.0-46.0); Hemoglobin 7.2 g/dL (12.2-16.2); Mean Corpuscular Hemoglobin 31.3 pg (28.0-32.0); Mean Corpuscular Hgb Conc. 35.2 g/dL (32.0-36.0); Mean Corpuscular Volume 89.1 fL (80.0-100.0); Platelet Count (auto) 481 10^3/uL (140-450); Red Blood Cells 2.29 10^6/uL (4.0-5.20); Red Cell Distribution Width 14.8 % (11.8-14.3)
[2021-01-26 08:09] LABS: Basophils % (manual) 0 (0.0-2.0); Blast Cells 0; Eosinophils % (manual) 0 (0-7); Myelocytes % 0; Promyelocytes % 0; Reactive Lymphocytes 0
[2021-01-26 08:36] LABS: Albumin 2.2 g/dL (3.4-5.0); BUN/Creatinine Ratio 13.2; Calcium 7.8 mg/dL (8.5-10.1); Potassium 3.7 mmol/L (3.5-5.1)
[2021-01-26 08:39] LABS: Bilirubin, Total 0.2 mg/dL (0.2-1.0); Total Protein 6.8 g/dL (6.4-8.2)
[2021-01-26 09:14] LABS: Band Neutrophils % (manual) 5; Lymphocytes % (manual) 9 (10.0-50.0); Metamyelocytes % 1; Monocytes % (manual) 7 (0-12)
== END | disposition home or self-care (01) ==
LOC: LAB 07:52
PROVIDERS: ATTEND Internal Medicine
DX: C67.9 Malignant neoplasm of bladder, unspecified (principal)
CPT/HCPCS: 36415; 80053; 83615; 85007; 85027; 85049

== ENCOUNTER 2021-01-30 14:38 | Inpatient (IN) | payer OTHER ==
[~2021-01-30] VITALS: Ht 157.5 cm; Wt 76.1 kg
[2021-01-30 16:38] LABS: White Blood Cell 5.2 10^3/uL (4.4-10.8)
[2021-01-30 16:40] LABS: Hematocrit 23.2 % (36.0-46.0); Hemoglobin 8.1 g/dL (12.2-16.2); Mean Corpuscular Hemoglobin 31.3 pg (28.0-32.0); Mean Corpuscular Hgb Conc. 35.1 g/dL (32.0-36.0); Mean Corpuscular Volume 89.1 fL (80.0-100.0); Red Cell Distribution Width 15.4 % (11.8-14.3)
[2021-01-30 16:51] LABS: Basophils % (manual) 0 (0.0-2.0); Blast Cells 0; Eosinophils % (manual) 0 (0-7); Metamyelocytes % 0; Myelocytes % 0; Promyelocytes % 0; Reactive Lymphocytes 0
[2021-01-30 16:55] LABS: INR 1.12 (0.9-1.15); Partial Thromboplastin Time 28.8 sec (23.0-31.2)
[2021-01-30 16:56] LABS: Albumin 2.5 g/dL (3.4-5.0); Anion Gap 8 (5-15); Blood Urea Nitrogen 15 mg/dL (7-18); Calcium 8.4 mg/dL (8.5-10.1); Carbon Dioxide 22 mmol/L (21-32); Chloride 105 mmol/L (98-107); Glucose 120 mg/dL (74-106); Potassium 4.2 mmol/L (3.5-5.1); Sodium 135 mmol/L (136-145)
[2021-01-30 16:59] LABS: Alanine Aminotransferase 14 U/L (13-56); Aspartate Aminotransferase 20 U/L (15-37); BUN/Creatinine Ratio 15.3; GFR African American 71 mL/min; GFR Non-African American 58 mL/min
[2021-01-30 17:03] LABS: Alkaline Phosphatase 143 U/L (45-117); Bilirubin, Total 0.3 mg/dL (0.2-1.0); Total Protein 7.3 g/dL (6.4-8.2)
[2021-01-30] MEDS ORDERED: NITROGLYCERIN 0.4 MG SL TAB SL PRN (18:15)
[2021-01-30] MEDS ORDERED: MORPHINE SULFATE INJECTION 2 MG/ML SYRG IV PRN ×2 (18:15)
[2021-01-30] MEDS ORDERED: ACETAMINOPHEN 500 MG TAB PO PRN (18:15)
[2021-01-30] MEDS ORDERED: ONDANSETRON HCL 4 MG/2 ML VIAL IV PRN (18:15)
[2021-01-30 20:37] LABS: Urine Bacteria FEW /hpf (None Seen); Urine Blood 3+ /uL (Negative); Urine Mucus FEW (None Seen); Urine Specific Gravity 1.015 (1.001-1.035); Urine WBC 745 /hpf (0 - 5)
[2021-01-30] MEDS: PRAVASTATIN SODIUM 20 MG TAB PO SCH (22:00)
[2021-01-30] MEDS: hydrALAZINE HCL 25 MG TAB PO SCH (22:00)
[2021-01-30 22:11] LABS: Band Neutrophils % (manual) 3; Lymphocytes % (manual) 7 (10.0-50.0); Monocytes % (manual) 2 (0-12)
[2021-01-31] VITALS (7 sets, daily range): BP systolic 107–131; BP diastolic 54–62
[2021-01-31] MEDS: HYDROcodone-ACET 5/325MG TAB PO PRN ×3 (02:15→23:04)
[2021-01-31] MEDS: hydrALAZINE HCL 25 MG TAB PO SCH ×3 (06:30→22:19)
[2021-01-31] MEDS: FERROUS SULFATE 325mg EC TAB PO SCH ×2 (08:00→17:28)
[2021-01-31] MEDS ORDERED: LIDOCAINE 2%HCL (LOCAL ANESTH.) INJ 20ML MDV ONE ×2 (09:45→10:29)
[2021-01-31] MEDS: LISINOPRIL PO SCH (10:00)
[2021-01-31] MEDS: FAMOTIDINE 20 MG TAB PO SCH (10:00)
[2021-01-31] MEDS: HYDROCHLOROTHIAZIDE PO SCH (10:00)
[2021-01-31] MEDS ORDERED: MIDAZOLAM HCL 2MG/2ML 2ml VIAL (1mg/ml) ONE (10:00)
[2021-01-31] MEDS ORDERED: fentaNYL CITRATE 100 MCG/2 ML VL ONE (10:00)
[2021-01-31] MEDS ORDERED: IODIXANOL 320MG/ML 100ML BTL IV ONE (10:19)
[2021-01-31] MEDS ORDERED: cefTRIAXone 1GM/50ML D5W 50 ML IV ONE (11:09)
[2021-01-31] MEDS ORDERED: HYDROmorphone HCL 2 MG/ML VL ONE (11:21)
[2021-01-31 14:16] LABS: BUN/Creatinine Ratio 19.7; Calcium 8.4 mg/dL (8.5-10.1); Potassium 4.1 mmol/L (3.5-5.1)
[2021-01-31 14:30] LABS: Red Cell Distribution Width 15.3 % (11.8-14.3)
[2021-01-31 14:34] LABS: Hematocrit 24.5 % (36.0-46.0); Hemoglobin 8.4 g/dL (12.2-16.2); Mean Corpuscular Hemoglobin 30.5 pg (28.0-32.0); Mean Corpuscular Hgb Conc. 34.3 g/dL (32.0-36.0); Red Blood Cells 2.76 10^6/uL (4.0-5.20)
[2021-01-31 14:44] LABS: Basophils % (manual) 0 (0.0-2.0); Blast Cells 0; Eosinophils % (manual) 0 (0-7); Metamyelocytes % 0; Monocytes % (manual) 0 (0-12); Myelocytes % 0; Promyelocytes % 0; Reactive Lymphocytes 0
[2021-01-31 16:32] LABS: Band Neutrophils % (manual) 26; Lymphocytes % (manual) 1 (10.0-50.0)
[2021-01-31] MEDS: PRAVASTATIN SODIUM 20 MG TAB PO SCH (22:19)
[2021-01-31] MEDS ORDERED: FLEET ENEMA(ADULT) 135 ML PR ONE (22:30)
[2021-01-31] MEDS: DOCUSATE SOD 100 MG CAP PO SCH (23:03)
[2021-02-01 05:00] VITALS: BP 104/58
[2021-02-01] MEDS: hydrALAZINE HCL 25 MG TAB PO SCH ×3 (05:39→21:43)
[2021-02-01 06:43] LABS: Potassium 3.7 mmol/L (3.5-5.1)
[2021-02-01 06:51] LABS: BUN/Creatinine Ratio 20.3; Calcium 8.1 mg/dL (8.5-10.1)
[2021-02-01 06:54] LABS: Hematocrit 22.2 % (36.0-46.0); Hemoglobin 7.8 g/dL (12.2-16.2); Mean Corpuscular Hgb Conc. 35.1 g/dL (32.0-36.0); Mean Corpuscular Volume 88.3 fL (80.0-100.0); Red Blood Cells 2.52 10^6/uL (4.0-5.20); Red Cell Distribution Width 15.5 % (11.8-14.3); White Blood Cell 28.9 10^3/uL (4.4-10.8)
[2021-02-01 06:57] LABS: Basophils % (manual) 0 (0.0-2.0); Blast Cells 0; Eosinophils % (manual) 0 (0-7); Myelocytes % 0; Promyelocytes % 0; Reactive Lymphocytes 0
[2021-02-01 07:20] LABS: Band Neutrophils % (manual) 8; Lymphocytes % (manual) 4 (10.0-50.0); Metamyelocytes % 1; Monocytes % (manual) 3 (0-12)
[2021-02-01] MEDS: FERROUS SULFATE 325mg EC TAB PO SCH ×2 (08:15→18:02)
[2021-02-01] MEDS: HYDROcodone-ACET 5/325MG TAB PO PRN ×3 (08:16→21:44)
[2021-02-01 09:00] VITALS: BP 110/59
[2021-02-01] MEDS ORDERED: cefTRIAXone 1GM/50ML D5W 50 ML IV SCH ×2 (09:00→22:00)
[2021-02-01] MEDS: FAMOTIDINE 20 MG TAB PO SCH (09:32)
[2021-02-01] MEDS: DOCUSATE SOD 100 MG CAP PO SCH ×2 (09:32→21:44)
[2021-02-01] MEDS: HYDROCHLOROTHIAZIDE PO SCH (09:32)
[2021-02-01] MEDS: LISINOPRIL PO SCH (09:32)
[2021-02-01 13:00] VITALS: BP 120/57
[2021-02-01] MEDS: SODIUM CHLORIDE 0.9% 1,000 ML IV SCH ×2 (14:57→23:42)
[2021-02-01 17:00] VITALS: BP 127/68
[2021-02-01] MEDS: MEROPENEM 1GM IVPB 100 ML IV SCH (18:02)
[2021-02-01] MEDS: PRAVASTATIN SODIUM 20 MG TAB PO SCH (21:44)
[2021-02-01 21:54] VITALS: BP 118/68
[2021-02-02] MEDS: MEROPENEM 1GM IVPB 100 ML IV SCH ×3 (02:23→18:00)
[2021-02-02 05:00] VITALS: BP 130/75
[2021-02-02] MEDS: hydrALAZINE HCL 25 MG TAB PO SCH ×2 (05:53→14:32)
[2021-02-02] MEDS: HYDROcodone-ACET 5/325MG TAB PO PRN (06:06)
[2021-02-02 07:32] LABS: Hematocrit 21.4 % (36.0-46.0); Hemoglobin 7.4 g/dL (12.2-16.2); Mean Corpuscular Hemoglobin 30.8 pg (28.0-32.0); Mean Corpuscular Hgb Conc. 34.7 g/dL (32.0-36.0); Mean Corpuscular Volume 88.7 fL (80.0-100.0); Red Blood Cells 2.41 10^6/uL (4.0-5.20); Red Cell Distribution Width 15.7 % (11.8-14.3); White Blood Cell 17.1 10^3/uL (4.4-10.8)
[2021-02-02 07:35] LABS: Basophils % (manual) 0 (0.0-2.0); Blast Cells 0; Eosinophils % (manual) 0 (0-7); Monocytes % (manual) 0 (0-12); Myelocytes % 0; Promyelocytes % 0; Reactive Lymphocytes 0
[2021-02-02 07:51] LABS: Potassium 3.1 mmol/L (3.5-5.1)
[2021-02-02 07:59] LABS: Albumin 2.3 g/dL (3.4-5.0); BUN/Creatinine Ratio 23.5; Bilirubin, Total 0.3 mg/dL (0.2-1.0); Calcium 7.5 mg/dL (8.5-10.1); Total Protein 6.2 g/dL (6.4-8.2)
[2021-02-02 08:19] LABS: Band Neutrophils % (manual) 5; Lymphocytes % (manual) 1 (10.0-50.0)
[2021-02-02 08:20] LABS: Metamyelocytes % 1
[2021-02-02 08:30] VITALS: BP 115/69
[2021-02-02] MEDS: OXYCODONE W/ ACETAMINOPHEN 5/325MG TABLET PO PRN ×2 (09:13→17:24)
[2021-02-02] MEDS: FERROUS SULFATE 325mg EC TAB PO SCH ×2 (09:16→18:00)
[2021-02-02] MEDS: FAMOTIDINE 20 MG TAB PO SCH (09:16)
[2021-02-02] MEDS: DOCUSATE SOD 100 MG CAP PO SCH (09:16)
[2021-02-02] MEDS: SODIUM CHLORIDE 0.9% 1,000 ML IV SCH (10:15)
[2021-02-02 12:30] VITALS: BP 122/74
[2021-02-02 16:30] VITALS: BP 137/63
[2021-02-02 17:16] VITALS: BP 122/74
[2021-04-07] MEDS ORDERED: PERCOT PO (08:59)
[2021-04-07] MEDS ORDERED: POTA10TA51 PO (08:59)
== END 2021-02-02 20:45 | disposition home or self-care (01) | DRG 872 ==
LOC: ER 14:38 → OVERFLOW 18:31 → WEST WING 23:13
PROVIDERS: ADMIT Nurse Practitioner Acute Care; ATTEND Internal Medicine
PROC: BT141ZZ Fluoroscopy of Kidneys, Ureters and Bladder using Low Osmolar Contrast (ICD-10-PCS; principal; 2021-01-31)
PROC: 0T9830Z Drainage of Bilateral Ureters with Drainage Device, Percutaneous Approach (ICD-10-PCS; 2021-01-31)
DX: A41.9 Sepsis, unspecified organism (principal); N18.4 Chronic kidney disease, stage 4 (severe); N17.9 Acute kidney failure, unspecified; N13.6 Pyonephrosis; T83.022A Displacement of nephrostomy catheter, initial encounter; C67.9 Malignant neoplasm of bladder, unspecified; D64.9 Anemia, unspecified; E78.5 Hyperlipidemia, unspecified; K57.30 Diverticulosis of large intestine without perforation or abscess without bleeding; I12.9 Hypertensive chronic kidney disease with stage 1 through stage 4 chronic kidney disease, or unspecified chronic kidney disease; Z20.822 Contact with and (suspected) exposure to COVID-19; E78.00 Pure hypercholesterolemia, unspecified; J45.909 Unspecified asthma, uncomplicated; M16.0 Bilateral primary osteoarthritis of hip; M51.36 Other intervertebral disc degeneration, lumbar region; Z96.651 Presence of right artificial knee joint; R65.20 Severe sepsis without septic shock; Y73.2 Prosthetic and other implants, materials and accessory gastroenterology and urology devices associated with adverse incidents; Z79.82 Long term (current) use of aspirin; Z79.899 Other long term (current) drug therapy; Z80.41 Family history of malignant neoplasm of ovary; Z80.52 Family history of malignant neoplasm of bladder; Z82.49 Family history of ischemic heart disease and other diseases of the circulatory system; Y92.89 Other specified places as the place of occurrence of the external cause; Z82.5 Family history of asthma and other chronic lower respiratory diseases; Z85.51 Personal history of malignant neoplasm of bladder; Z85.528 Personal history of other malignant neoplasm of kidney
CPT/HCPCS: 36415; 50430; 71045; 74176; 74425; 76942; 80048; 80053; 81001; 84484; 85007; 85027; 85045; 85049; 85610; 85730; 87040; 87086; 87088; 87186; 87426; 93005; 99152; 99153; C1729; C2625; G0378; J0696; J2185; J2250; Q9967

== ENCOUNTER → 2021-02-09 | Outpatient (CLI) | payer OTHER | END | disposition home or self-care (01) | LOC: XYW 09:53 | PROVIDERS: ATTEND Internal Medicine | DX: T83.022A Displacement of nephrostomy catheter, initial encounter (principal); M47.819 Spondylosis without myelopathy or radiculopathy, site unspecified | CPT/HCPCS: 74018 ==

== ENCOUNTER → 2021-02-16 | Outpatient (CLI) | payer OTHER ==
[2021-02-16 08:56] LABS: Hemoglobin 7.1 g/dL (12.2-16.2); White Blood Cell 2.7 10^3/uL (4.4-10.8)
[2021-02-16 08:57] LABS: Hematocrit 21.3 % (36.0-46.0); Mean Corpuscular Hemoglobin 29.9 pg (28.0-32.0); Mean Corpuscular Hgb Conc. 33.2 g/dL (32.0-36.0); Mean Corpuscular Volume 90.1 fL (80.0-100.0); Red Blood Cells 2.37 10^6/uL (4.0-5.20); Red Cell Distribution Width 16.2 % (11.8-14.3)
[2021-02-16 09:03] LABS: Band Neutrophils % (manual) 0; Basophils % (manual) 0 (0.0-2.0); Blast Cells 0; Eosinophils % (manual) 0 (0-7); Myelocytes % 0; Promyelocytes % 0; Reactive Lymphocytes 0
[2021-02-16 09:37] LABS: Lymphocytes % (manual) 44 (10.0-50.0); Metamyelocytes % 1; Monocytes % (manual) 20 (0-12)
[2021-02-16 09:59] LABS: Potassium 3.2 mmol/L (3.5-5.1)
[2021-02-16 10:13] LABS: Albumin 3.1 g/dL (3.4-5.0); BUN/Creatinine Ratio 13.1; Bilirubin, Total 0.3 mg/dL (0.2-1.0); Total Protein 7.2 g/dL (6.4-8.2)
== END | disposition home or self-care (01) ==
LOC: LAB 08:21
PROVIDERS: ATTEND Internal Medicine
DX: C67.9 Malignant neoplasm of bladder, unspecified (principal)
CPT/HCPCS: 36415; 80053; 83615; 85007; 85027

== ENCOUNTER → 2021-03-03 | Outpatient (CLI) | payer OTHER ==
[2021-03-03 09:25] LABS: Basophils # (auto) 0 10 ^3/uL (0-0.2); Basophils % (auto) 0.5 % (0.0-2.0); Eosinophils # (auto) 0 10 ^3/uL (0-0.8); Eosinophils % (auto) 0.1 % (0.0-7.0); Hematocrit 20.4 % (36.0-46.0); Lymphocytes # (auto) 1.1 10 ^3/uL (0.4-5.4); Monocytes # (auto) 0.4 10 ^3/uL (0-1.3); Neutrophils # (auto) 1.4 10 ^3/uL (1.6-8.6); White Blood Cell 2.9 10^3/uL (4.4-10.8)
[2021-03-03 09:27] LABS: Lymphocytes % (auto) 38.5 % (10.0-50.0); Mean Corpuscular Hemoglobin 32.4 pg (28.0-32.0); Mean Corpuscular Hgb Conc. 34.4 g/dL (32.0-36.0); Monocytes % (auto) 12.9 % (0.0-12.0); Nucleated Red Blood Cells % 0.3 %; Red Blood Cells 2.17 10^6/uL (4.0-5.20)
[2021-03-03 09:36] LABS: Red Cell Distribution Width 20.1 % (11.8-14.3)
[2021-03-03 09:49] LABS: Albumin 3.1 g/dL (3.4-5.0); Calcium 8.1 mg/dL (8.5-10.1)
[2021-03-03 09:54] LABS: Bilirubin, Total 0.4 mg/dL (0.2-1.0); Total Protein 7.4 g/dL (6.4-8.2)
[2021-03-03 10:11] LABS: Potassium 2.9 mmol/L (3.5-5.1)
== END | disposition home or self-care (01) ==
LOC: LAB 08:03
PROVIDERS: ATTEND Internal Medicine
DX: C67.9 Malignant neoplasm of bladder, unspecified (principal)
CPT/HCPCS: 36415; 80053; 83615; 85025

== ENCOUNTER → 2021-03-09 | Outpatient (CLI) | payer OTHER ==
[2021-03-09 09:52] LABS: Basophils # (auto) 0 10 ^3/uL (0-0.2); Eosinophils # (auto) 0 10 ^3/uL (0-0.8); Mean Corpuscular Hemoglobin 33.6 pg (28.0-32.0); Mean Corpuscular Hgb Conc. 33.5 g/dL (32.0-36.0); Monocytes # (auto) 0.3 10 ^3/uL (0-1.3)
[2021-03-09 09:55] LABS: Basophils % (auto) 0.2 % (0.0-2.0); Eosinophils % (auto) 0.1 % (0.0-7.0); Hematocrit 19.2 % (36.0-46.0); Lymphocytes % (auto) 9.3 % (10.0-50.0); Mean Corpuscular Volume 100.1 fL (80.0-100.0); Monocytes % (auto) 2.4 % (0.0-12.0); Neutrophils # (auto) 9.8 10 ^3/uL (1.6-8.6); Red Blood Cells 1.92 10^6/uL (4.0-5.20); White Blood Cell 11.1 10^3/uL (4.4-10.8)
[2021-03-09 10:18] LABS: Potassium 4.2 mmol/L (3.5-5.1)
[2021-03-09 10:32] LABS: Hemoglobin 6.5 g/dL (12.2-16.2); Red Cell Distribution Width 24.9 % (11.8-14.3)
[2021-03-09 10:35] LABS: Albumin 2.9 g/dL (3.4-5.0); BUN/Creatinine Ratio 15.2; Bilirubin, Total 0.5 mg/dL (0.2-1.0); Calcium 8.2 mg/dL (8.5-10.1); Total Protein 6.8 g/dL (6.4-8.2)
== END | disposition home or self-care (01) ==
LOC: LAB 09:20
PROVIDERS: ATTEND Internal Medicine
DX: C67.9 Malignant neoplasm of bladder, unspecified (principal)
CPT/HCPCS: 36415; 80053; 83615; 85025

== ENCOUNTER 2021-03-17 20:07 | Emergency (ER) | payer OTHER ==
[~2021-03-17] VITALS: Ht 157.5 cm; Wt 68.0 kg
[2021-03-17 22:15] LABS: Basophils # (auto) 0 10 ^3/uL (0-0.2); Basophils % (auto) 0.4 % (0.0-2.0); Eosinophils # (auto) 0 10 ^3/uL (0-0.8); Eosinophils % (auto) 0.1 % (0.0-7.0); Lymphocytes # (auto) 1.4 10 ^3/uL (0.4-5.4); Lymphocytes % (auto) 36.7 % (10.0-50.0); Nucleated Red Blood Cells % 0.1 %; White Blood Cell 3.8 10^3/uL (4.4-10.8)
[2021-03-17 22:17] LABS: Hematocrit 17.7 % (36.0-46.0); Mean Corpuscular Hemoglobin 35.5 pg (28.0-32.0); Mean Corpuscular Hgb Conc. 34.2 g/dL (32.0-36.0); Mean Corpuscular Volume 103.6 fL (80.0-100.0); Monocytes # (auto) 0 10 ^3/uL (0-1.3); Monocytes % (auto) 1.2 % (0.0-12.0); Neutrophils # (auto) 2.3 10 ^3/uL (1.6-8.6); Neutrophils % (auto) 61.6 % (37.0-80.0); Red Blood Cells 1.71 10^6/uL (4.0-5.20)
[2021-03-17 22:25] LABS: Red Cell Distribution Width 23.1 % (11.8-14.3)
[2021-03-17 22:27] LABS: Hemoglobin 6.1 g/dL (12.2-16.2)
[2021-03-17 22:31] LABS: INR 1.08 (0.9-1.15)
[2021-03-17 22:37] LABS: Albumin 3.3 g/dL (3.4-5.0); Anion Gap 10 (5-15); Calcium 8.1 mg/dL (8.5-10.1); Carbon Dioxide 19 mmol/L (21-32); Chloride 107 mmol/L (98-107); Glucose 105 mg/dL (74-106); Potassium 4.5 mmol/L (3.5-5.1); Sodium 136 mmol/L (136-145)
[2021-03-17 22:45] LABS: Alanine Aminotransferase 16 U/L (13-56); Alkaline Phosphatase 109 U/L (45-117); Aspartate Aminotransferase 20 U/L (15-37); BUN/Creatinine Ratio 16.3; Blood Urea Nitrogen 24 mg/dL (7-18); GFR African American 44 mL/min; GFR Non-African American 37 mL/min; Total Protein 7.6 g/dL (6.4-8.2)
[2021-03-17 22:47] LABS: Bilirubin, Total 0.7 mg/dL (0.2-1.0)
[2021-03-17 23:45] VITALS: BP 110/41
== END 2021-03-17 23:41 | disposition left against medical advice (07) ==
LOC: ER 20:07
DX: D64.9 Anemia, unspecified (principal); I10 Essential (primary) hypertension; Z85.51 Personal history of malignant neoplasm of bladder; Z79.899 Other long term (current) drug therapy
CPT/HCPCS: 36415; 80053; 83735; 85025; 85610; 85730; 86850; 86900; 86901; 93005

== ENCOUNTER → 2021-03-17 | Outpatient (CLI) | payer OTHER ==
[2021-03-17 08:56] LABS: Basophils # (auto) 0 10 ^3/uL (0-0.2); Eosinophils # (auto) 0 10 ^3/uL (0-0.8); Lymphocytes # (auto) 0.8 10 ^3/uL (0.4-5.4); Monocytes # (auto) 0.1 10 ^3/uL (0-1.3); Monocytes % (auto) 1.5 % (0.0-12.0); White Blood Cell 3.7 10^3/uL (4.4-10.8)
[2021-03-17 08:57] LABS: Basophils % (auto) 0.3 % (0.0-2.0); Eosinophils % (auto) 0.3 % (0.0-7.0); Hematocrit 16.7 % (36.0-46.0); Lymphocytes % (auto) 20.5 % (10.0-50.0); Mean Corpuscular Volume 102.9 fL (80.0-100.0); Neutrophils # (auto) 2.9 10 ^3/uL (1.6-8.6); Neutrophils % (auto) 77.4 % (37.0-80.0); Red Blood Cells 1.62 10^6/uL (4.0-5.20)
[2021-03-17 09:29] LABS: Calcium 8.1 mg/dL (8.5-10.1); Potassium 4.4 mmol/L (3.5-5.1)
[2021-03-17 09:34] LABS: BUN/Creatinine Ratio 18.2; Bilirubin, Total 0.7 mg/dL (0.2-1.0); Total Protein 7.2 g/dL (6.4-8.2)
[2021-03-17 10:12] LABS: Hemoglobin 5.7 g/dL (12.2-16.2); Red Cell Distribution Width 23.3 % (11.8-14.3)
== END | disposition home or self-care (01) ==
LOC: LAB 08:39
PROVIDERS: ATTEND Internal Medicine
DX: C67.9 Malignant neoplasm of bladder, unspecified (principal)
CPT/HCPCS: 36415; 80053; 83615; 85025

== ENCOUNTER 2021-03-19 14:05 | Emergency (ER) | payer OTHER ==
[~2021-03-19] VITALS: Ht 157.5 cm; Wt 68.0 kg
[2021-03-19 16:45] LABS: Albumin 3.5 g/dL (3.4-5.0); Anion Gap 12 (5-15); BUN/Creatinine Ratio 19.7; Blood Urea Nitrogen 38 mg/dL (7-18); Calcium 8.3 mg/dL (8.5-10.1); Carbon Dioxide 18 mmol/L (21-32); Chloride 109 mmol/L (98-107); GFR African American 32 mL/min; GFR Non-African American 27 mL/min; Glucose 103 mg/dL (74-106); Potassium 4.7 mmol/L (3.5-5.1); Sodium 139 mmol/L (136-145)
[2021-03-19 16:51] LABS: Alanine Aminotransferase 14 U/L (13-56); Alkaline Phosphatase 110 U/L (45-117); Aspartate Aminotransferase 18 U/L (15-37); Bilirubin, Total 0.6 mg/dL (0.2-1.0); Total Protein 7.7 g/dL (6.4-8.2)
[2021-03-19 16:59] LABS: Hematocrit 17.2 % (36.0-46.0); Mean Corpuscular Hemoglobin 34.4 pg (28.0-32.0); Mean Corpuscular Hgb Conc. 33.7 g/dL (32.0-36.0); Red Blood Cells 1.69 10^6/uL (4.0-5.20)
[2021-03-19 17:01] LABS: Red Cell Distribution Width 22.8 % (11.8-14.3)
[2021-03-19 17:09] LABS: White Blood Cell 1.8 10^3/uL (4.4-10.8)
[2021-03-19 17:10] LABS: Band Neutrophils % (manual) 0; Basophils % (manual) 0 (0.0-2.0); Blast Cells 0; Eosinophils % (manual) 0 (0-7); Hemoglobin 5.8 g/dL (12.2-16.2); Metamyelocytes % 0; Myelocytes % 0; Promyelocytes % 0; Reactive Lymphocytes 0
[2021-03-19] MEDS ORDERED: PANTOPRAZOLE 40 MG/10 ML VIAL INJ IV ONE (17:30)
[2021-03-19] MEDS ORDERED: SODIUM CHLORIDE 0.9% 1,000 ML IV ONE (17:30)
[2021-03-19] MEDS ORDERED: PANTOPRAZOLE 40mg/50ML NS AE 50 ML IV ONE (17:30)
[2021-03-19 17:34] LABS: Lymphocytes % (manual) 55 (10.0-50.0); Monocytes % (manual) 6 (0-12)
[2021-03-19 20:05] VITALS: BP 104/63
== END 2021-03-20 03:51 | disposition left against medical advice (07) ==
LOC: ER 14:05
DX: D69.6 Thrombocytopenia, unspecified (principal); I10 Essential (primary) hypertension
CPT/HCPCS: 36415; 71045; 74176; 80053; 84484; 85007; 85027; 93005; 99291

== ENCOUNTER → 2021-03-22 | Outpatient (CLI) | payer OTHER ==
[2021-03-22 10:18] LABS: Basophils # (auto) 0 10 ^3/uL (0-0.2); Basophils % (auto) 0.2 % (0.0-2.0); Eosinophils # (auto) 0 10 ^3/uL (0-0.8); Lymphocytes # (auto) 1.2 10 ^3/uL (0.4-5.4); Monocytes # (auto) 0.9 10 ^3/uL (0-1.3)
[2021-03-22 10:21] LABS: Eosinophils % (auto) 0.1 % (0.0-7.0); Hematocrit 15.4 % (36.0-46.0); Mean Corpuscular Hemoglobin 34.6 pg (28.0-32.0); Mean Corpuscular Hgb Conc. 32.8 g/dL (32.0-36.0); Mean Corpuscular Volume 105.5 fL (80.0-100.0); Monocytes % (auto) 5.9 % (0.0-12.0); Neutrophils % (auto) 85.8 % (37.0-80.0); Nucleated Red Blood Cells % 0.5 %; Red Blood Cells 1.46 10^6/uL (4.0-5.20); White Blood Cell 15.2 10^3/uL (4.4-10.8)
[2021-03-22 10:29] LABS: Red Cell Distribution Width 22.7 % (11.8-14.3)
[2021-03-22 10:32] LABS: Hemoglobin 5.1 g/dL (12.2-16.2)
[2021-03-22 10:46] LABS: Albumin 3.4 g/dL (3.4-5.0); Calcium 8.7 mg/dL (8.5-10.1); Potassium 4.9 mmol/L (3.5-5.1)
[2021-03-22 10:49] LABS: BUN/Creatinine Ratio 18.2; Bilirubin, Total 0.3 mg/dL (0.2-1.0); Total Protein 7.6 g/dL (6.4-8.2)
== END | disposition home or self-care (01) ==
LOC: LAB 09:52
PROVIDERS: ATTEND Internal Medicine
DX: C67.9 Malignant neoplasm of bladder, unspecified (principal)
CPT/HCPCS: 36415; 80053; 83615; 85025

== ENCOUNTER → 2021-03-29 | Outpatient (CLI) | payer OTHER ==
[2021-03-29 14:35] LABS: Hematocrit 21.2 % (36.0-46.0); Mean Corpuscular Hemoglobin 35.8 pg (28.0-32.0); Mean Corpuscular Hgb Conc. 32.3 g/dL (32.0-36.0); Mean Corpuscular Volume 110.7 fL (80.0-100.0); Red Blood Cells 1.91 10^6/uL (4.0-5.20); White Blood Cell 10.6 10^3/uL (4.4-10.8)
[2021-03-29 14:44] LABS: Albumin 3.3 g/dL (3.4-5.0); Calcium 8.8 mg/dL (8.5-10.1); Potassium 4.6 mmol/L (3.5-5.1)
[2021-03-29 14:46] LABS: BUN/Creatinine Ratio 21.3; Bilirubin, Total 0.3 mg/dL (0.2-1.0); Total Protein 7.7 g/dL (6.4-8.2)
[2021-03-29 14:51] LABS: Hemoglobin 6.8 g/dL (12.2-16.2); Red Cell Distribution Width 28.4 % (11.8-14.3)
[2021-03-29 14:52] LABS: Basophils % (manual) 0 (0.0-2.0); Blast Cells 0; Eosinophils % (manual) 0 (0-7); Myelocytes % 0; Promyelocytes % 0; Reactive Lymphocytes 0
[2021-03-29 14:56] LABS: Band Neutrophils % (manual) 7; Lymphocytes % (manual) 5 (10.0-50.0); Metamyelocytes % 3; Monocytes % (manual) 8 (0-12)
== END | disposition home or self-care (01) ==
LOC: LAB 13:36
PROVIDERS: ATTEND Internal Medicine
DX: C67.9 Malignant neoplasm of bladder, unspecified (principal); N18.9 Chronic kidney disease, unspecified
CPT/HCPCS: 36415; 80053; 85007; 85027; 85652

== ENCOUNTER 2021-05-01 13:30 | Emergency (ER) | payer OTHER ==
[~2021-05-01] VITALS: Ht 157.5 cm; Wt 68.0 kg
[~2021-05-01 13:30] MED LIST changes: -IOHEXOL 300 MG/ML 100ML BOTTLE IJ ONE
[2021-05-01 13:56] VITALS: BP 94/54
== END 2021-05-01 15:55 | disposition left against medical advice (07) ==
LOC: ER 13:30
DX: N99.522 Malfunction of incontinent external stoma of urinary tract (principal); Z85.51 Personal history of malignant neoplasm of bladder; Z79.82 Long term (current) use of aspirin; Z79.899 Other long term (current) drug therapy
CPT/HCPCS: 74176

== ENCOUNTER → 2021-05-01 | Outpatient (CLI) | payer OTHER ==
[~2021-05-01] MED LIST changes: +IOHEXOL 300 MG/ML 100ML BOTTLE IJ ONE; +POTA10TA51 PO
[2021-05-01 11:50] LABS: Basophils # (auto) 0 10 ^3/uL (0-0.2); Basophils % (auto) 0.7 % (0.0-2.0); Eosinophils # (auto) 0 10 ^3/uL (0-0.8); Eosinophils % (auto) 0.2 % (0.0-7.0); Hematocrit 31.7 % (36.0-46.0); Hemoglobin 9.7 g/dL (12.2-16.2); Lymphocytes # (auto) 0.5 10 ^3/uL (0.4-5.4); Lymphocytes % (auto) 12.4 % (10.0-50.0); Mean Corpuscular Hemoglobin 35.3 pg (28.0-32.0); Mean Corpuscular Hgb Conc. 30.6 g/dL (32.0-36.0); Mean Corpuscular Volume 115.4 fL (80.0-100.0); Monocytes # (auto) 0.3 10 ^3/uL (0-1.3); Monocytes % (auto) 7.5 % (0.0-12.0); Neutrophils # (auto) 3.4 10 ^3/uL (1.6-8.6); Neutrophils % (auto) 79.2 % (37.0-80.0); Nucleated Red Blood Cells % 0.1 %; Red Blood Cells 2.74 10^6/uL (4.0-5.20); Red Cell Distribution Width 19.1 % (11.8-14.3); White Blood Cell 4.3 10^3/uL (4.4-10.8)
[2021-05-01 12:03] LABS: INR 1.38 (0.9-1.15)
[2021-05-01 12:11] LABS: Potassium 4.2 mmol/L (3.5-5.1)
[2021-05-01 12:21] LABS: Albumin 2.4 g/dL (3.4-5.0); BUN/Creatinine Ratio 20.7; Bilirubin, Total 0.3 mg/dL (0.2-1.0); Calcium 8.9 mg/dL (8.5-10.1); Total Protein 6.9 g/dL (6.4-8.2)
== END | disposition home or self-care (01) ==
LOC: LAB 11:01
PROVIDERS: ATTEND Internal Medicine
DX: C67.9 Malignant neoplasm of bladder, unspecified (principal); N13.9 Obstructive and reflux uropathy, unspecified
CPT/HCPCS: 36415; 80053; 85025; 85610; Q9967

== ENCOUNTER 2021-05-25 07:27 | Inpatient (IN) | payer OTHER ==
[~2021-05-25] VITALS: Ht 165.1 cm; Wt 53.9 kg
[2021-05-25] MEDS ORDERED: ASPirin 81 mg TAB PO ONE (08:15)
[2021-05-25 09:01] LABS: Albumin 2.3 g/dL (3.4-5.0); Calcium 8.4 mg/dL (8.5-10.1); Potassium 4.3 mmol/L (3.5-5.1)
[2021-05-25 09:07] LABS: BUN/Creatinine Ratio 23.1; Bilirubin, Total 0.4 mg/dL (0.2-1.0); Total Protein 6.5 g/dL (6.4-8.2)
[2021-05-25 10:14] LABS: Basophils # (auto) 0 10 ^3/uL (0-0.2); Basophils % (auto) 0.3 % (0.0-2.0); Eosinophils # (auto) 0 10 ^3/uL (0-0.8); Eosinophils % (auto) 0.1 % (0.0-7.0); Hematocrit 28.7 % (36.0-46.0); Hemoglobin 9.1 g/dL (12.2-16.2); Lymphocytes # (auto) 0.5 10 ^3/uL (0.4-5.4); Lymphocytes % (auto) 10.6 % (10.0-50.0); Mean Corpuscular Hgb Conc. 31.7 g/dL (32.0-36.0); Mean Corpuscular Volume 110.3 fL (80.0-100.0); Monocytes # (auto) 0.3 10 ^3/uL (0-1.3); Neutrophils # (auto) 4.1 10 ^3/uL (1.6-8.6); Nucleated Red Blood Cells % 0.1 %; Red Cell Distribution Width 17.7 % (11.8-14.3)
[2021-05-25] MEDS ORDERED: MORPHINE SULFATE INJECTION 2 MG/ML SYRG IV ONE (10:30)
[2021-05-25] MEDS ORDERED: ONDANSETRON HCL 4 MG/2 ML VIAL IM ONE (10:30)
[2021-05-25 10:45] LABS: INR 1.12 (0.9-1.15); Partial Thromboplastin Time 28.2 sec (23.6-33.0)
[2021-05-25] MEDS ORDERED: CATHFLO ACTIVASE (ALTEPLASE) 2 MG VIAL IV ONE (11:15)
[2021-05-25] MEDS ORDERED: ENOXAPARIN SOD 80 MG/0.8ML SYRINGE SC ONE (13:30)
[2021-05-25] MEDS ORDERED: ENOXAPARIN SOD 40 MG/0.4 ML SYRINGE SC ONE (14:30)
[2021-05-25] MEDS ORDERED: LABETALOL HCL 5 MG/ML 4ML SYRINGE IV ONE (14:30)
[2021-05-25] MEDS ORDERED: NITROGLYCERIN 0.4 MG SL TAB SL PRN ×2 (14:30→15:30)
[2021-05-25] MEDS ORDERED: LABETALOL HCL 5 MG/ML 4ML SYRINGE IV PRN (14:30)
[2021-05-25] MEDS ORDERED: MORPHINE SULFATE INJECTION 2 MG/ML SYRG IV PRN ×2 (14:30→15:30)
[2021-05-25 14:37] LABS: Urine Bacteria NONE SEEN /hpf (None Seen); Urine Blood 3+ /uL (Negative); Urine Specific Gravity 1.018 (1.001-1.035); Urine WBC 696 /hpf (0 - 5); Urine WBC Clumps PRESENT /hpf (None Seen)
[2021-05-25] MEDS ORDERED: PANTOPRAZOLE 40 MG/10 ML VIAL INJ IV ONE (14:45)
[2021-05-25] MEDS ORDERED: SUCRALFATE 1 GM/10 ML ORAL SUSP PO ONE ×2 (14:45→15:30)
[2021-05-25 15:15] LABS: Folate (Folic Acid) 3.01 ng/mL (5.38-24)
[2021-05-25] MEDS ORDERED: OXYC325T14 PO (15:17)
[2021-05-25] MEDS ORDERED: POTA10TA32 PO (15:17)
[2021-05-25] MEDS ORDERED: MAGN241.4 PO (15:18)
[2021-05-25] MEDS ORDERED: APIX5TAB PO (15:19)
[2021-05-25] MEDS ORDERED: ACETAMINOPHEN 325 MG TAB PO PRN (15:30)
[2021-05-25] MEDS ORDERED: LORazepam 0.5 MG TAB PO PRN (15:30)
[2021-05-25] MEDS ORDERED: DOCUSATE SOD 100 MG CAP PO PRN (15:30)
[2021-05-25] MEDS ORDERED: LISINOPRIL 5 MG TAB PO ONE (15:30)
[2021-05-25] MEDS ORDERED: ALUM & MAG HYDROX-SIMETH LIQ(MAALOX) 30 ML PO PRN (15:30)
[2021-05-25] MEDS ORDERED: NIFEdipine ER 30 MG TAB PO ONE (15:30)
[2021-05-25] MEDS ORDERED: FUROSEMIDE 40 MG/4 ML VIAL IV ONE (15:30)
[2021-05-25] MEDS ORDERED: METOPROLOL SUCCINATE XL 50 MG TAB PO ONE (15:30)
[2021-05-25] MEDS ORDERED: cefTRIAXone 1GM/50ML D5W 50 ML IV ONE (15:30)
[2021-05-25] MEDS ORDERED: SUCRALFATE 1 GM/10 ML ORAL SUSP PO SCH (17:00)
[2021-05-25] MEDS: SUCRALFATE 1 GM/10 ML ORAL SUSP PO SCH ×2 (17:00→21:48)
[2021-05-25] MEDS: FUROSEMIDE 20 MG/2 ML VIAL IV SCH (18:00)
[2021-05-25 18:37] VITALS: BP 149/97
[2021-05-25 20:00] VITALS: BP 120/79
[2021-05-25] MEDS: FAMOTIDINE (10MG/ML) 2ML VL IV SCH (21:48)
[2021-05-25] MEDS: ATORVASTATIN 20 MG TAB PO SCH (21:48)
[2021-05-25] MEDS: PANTOPRAZOLE 40 MG/10 ML VIAL INJ IV SCH (21:48)
[2021-05-25] MEDS: SODIUM CHLOR 0.9% PF (SALINE LOCK) 10ML VIAL/SYR IV SCH (21:49)
[2021-05-25 22:00] VITALS: BP 120/79
[2021-05-26 05:00] VITALS: BP 138/84
[2021-05-26] MEDS: HYDROcodone-ACET 5/325MG TAB PO PRN (05:04)
[2021-05-26] MEDS: SODIUM CHLOR 0.9% PF (SALINE LOCK) 10ML VIAL/SYR IV SCH ×3 (06:26→21:23)
[2021-05-26] MEDS: FUROSEMIDE 20 MG/2 ML VIAL IV SCH (06:26)
[2021-05-26] MEDS: SUCRALFATE 1 GM/10 ML ORAL SUSP PO SCH ×4 (06:26→21:23)
[2021-05-26] MEDS ORDERED: cefTRIAXone 1GM/50ML D5W 50 ML IV SCH (09:00)
[2021-05-26 09:38] VITALS: BP 108/68
[2021-05-26] MEDS ORDERED: NIFEdipine ER 30 MG TAB PO SCH (10:00)
[2021-05-26] MEDS ORDERED: METOPROLOL SUCCINATE XL 50 MG TAB PO SCH (10:00)
[2021-05-26] MEDS ORDERED: LISINOPRIL 5 MG TAB PO SCH (10:00)
[2021-05-26] MEDS: PANTOPRAZOLE 40 MG/10 ML VIAL INJ IV SCH ×2 (11:02→21:25)
[2021-05-26] MEDS: FAMOTIDINE (10MG/ML) 2ML VL IV SCH (11:02)
[2021-05-26] MEDS: ENOXAPARIN SOD 80 MG/0.8ML SYRINGE SC SCH (11:03)
[2021-05-26] MEDS ORDERED: CLINIMIX PER PHARMACY 0 ML IV SCH (12:45)
[2021-05-26 13:17] VITALS: BP 110/70
[2021-05-26 14:12] LABS: Basophils # (auto) 0 10 ^3/uL (0-0.2); Eosinophils # (auto) 0 10 ^3/uL (0-0.8); Lymphocytes # (auto) 0.5 10 ^3/uL (0.4-5.4); Mean Corpuscular Hgb Conc. 32.2 g/dL (32.0-36.0); Monocytes # (auto) 0.3 10 ^3/uL (0-1.3); Red Blood Cells 2.49 10^6/uL (4.0-5.20)
[2021-05-26 14:14] LABS: Basophils % (auto) 0.4 % (0.0-2.0); Hematocrit 26.8 % (36.0-46.0); Hemoglobin 8.6 g/dL (12.2-16.2); Lymphocytes % (auto) 11.7 % (10.0-50.0); Mean Corpuscular Hemoglobin 34.7 pg (28.0-32.0); Mean Corpuscular Volume 107.6 fL (80.0-100.0); Monocytes % (auto) 6.5 % (0.0-12.0); Neutrophils # (auto) 3.6 10 ^3/uL (1.6-8.6); Neutrophils % (auto) 81.4 % (37.0-80.0); Nucleated Red Blood Cells % 0.2 %; Red Cell Distribution Width 17.5 % (11.8-14.3); White Blood Cell 4.4 10^3/uL (4.4-10.8)
[2021-05-26 14:29] LABS: INR 1.1 (0.9-1.15); Partial Thromboplastin Time 31.6 sec (23.6-33.0)
[2021-05-26 14:30] LABS: % Iron Saturation 37.6 % (15-50); Albumin 1.9 g/dL (3.4-5.0); BUN/Creatinine Ratio 23.5; Calcium 8.1 mg/dL (8.5-10.1); Magnesium 2.6 mg/dL (1.6-2.6); Potassium 3.5 mmol/L (3.5-5.1)
[2021-05-26 14:36] LABS: Bilirubin, Total 0.4 mg/dL (0.2-1.0); Phosphorus 3.5 mg/dL (2.5-4.90); Total Protein 5.9 g/dL (6.4-8.2)
[2021-05-26] MEDS ORDERED: SODIUM CHLORIDE 0.9% 1,000 ML IV ONE (16:45)
[2021-05-26 17:00] VITALS: BP 77/46
[2021-05-26] MEDS ORDERED: MEROPENEM 500MG IVPB 50 ML IV SCH (17:00)
[2021-05-26] MEDS ORDERED: DEXTROSE (50%) 50ML SYRG IV SCH (18:00)
[2021-05-26] MEDS: InsuLIN REG 1unit/0.01ml Soln (100units/ml) SC SCH (18:00)
[2021-05-26] MEDS: ACCU-CHEK COMFORT CURVE STRIP VI SCH (18:24)
[2021-05-26 18:36] VITALS: BP 98/58
[2021-05-26] MEDS ORDERED: AMINO ACID INFUSION IN D10W 1,000 ML IV NR (20:00)
[2021-05-26] MEDS: MORPHINE SULFATE INJECTION 2 MG/ML SYRG IV PRN (21:05)
[2021-05-26] MEDS: MEROPENEM 500MG IVPB 50 ML IV SCH (21:23)
[2021-05-26] MEDS: ATORVASTATIN 20 MG TAB PO SCH (21:23)
[2021-05-26 22:00] VITALS: BP 100/62
[2021-05-27] MEDS: ACCU-CHEK COMFORT CURVE STRIP VI SCH ×5 (00:55→23:19)
[2021-05-27 05:00] VITALS: BP 127/74
[2021-05-27] MEDS: InsuLIN REG 1unit/0.01ml Soln (100units/ml) SC SCH ×5 (06:58→23:31)
[2021-05-27] MEDS: SUCRALFATE 1 GM/10 ML ORAL SUSP PO SCH ×4 (06:58→21:50)
[2021-05-27] MEDS: SODIUM CHLOR 0.9% PF (SALINE LOCK) 10ML VIAL/SYR IV SCH ×3 (06:59→21:51)
[2021-05-27 09:00] VITALS: BP 107/63
[2021-05-27] MEDS: PANTOPRAZOLE 40 MG/10 ML VIAL INJ IV SCH ×2 (09:09→23:19)
[2021-05-27] MEDS: ENOXAPARIN SOD 80 MG/0.8ML SYRINGE SC SCH (09:09)
[2021-05-27] MEDS: FAMOTIDINE (10MG/ML) 2ML VL IV SCH (09:09)
[2021-05-27] MEDS: MEROPENEM 500MG IVPB 50 ML IV SCH ×2 (09:09→23:32)
[2021-05-27 13:00] VITALS: BP 115/67
[2021-05-27] MEDS: MORPHINE SULFATE INJECTION 2 MG/ML SYRG IV PRN ×3 (13:32→23:20)
[2021-05-27 15:10] LABS: Albumin 1.9 g/dL (3.4-5.0); Calcium 7.8 mg/dL (8.5-10.1); Magnesium 2.5 mg/dL (1.6-2.6)
[2021-05-27 15:15] LABS: BUN/Creatinine Ratio 26.8; Bilirubin, Total 0.3 mg/dL (0.2-1.0); Phosphorus 2.4 mg/dL (2.5-4.90); Pre Albumin 12.7 mg/dL (20.0-40.0); Total Protein 5.9 g/dL (6.4-8.2)
[2021-05-27 15:34] LABS: Potassium 2.7 mmol/L (3.5-5.1)
[2021-05-27] MEDS: POTASSIUM CHL 20MEQ/100ML 100 ML IV SCH ×2 (16:27→18:32)
[2021-05-27] MEDS ORDERED: POTASSIUM PHOSPHATE IV ONE (16:30)
[2021-05-27] MEDS ORDERED: D5W 5% IV ONE (16:30)
[2021-05-27] MEDS: HYDROcodone-ACET 5/325MG TAB PO PRN (16:36)
[2021-05-27 16:43] VITALS: BP 113/70
[2021-05-27] MEDS ORDERED: POTASSIUM PHOSP 22MEQ(15MMOLE) in NS 100 ML IV ONE (20:30)
[2021-05-27] MEDS: AMINO ACID INFUSION IN D10W 1,000 ML IV NR (20:38)
[2021-05-27] MEDS: ATORVASTATIN 20 MG TAB PO SCH (21:50)
[2021-05-27 22:14] VITALS: BP 134/74
[2021-05-28] MEDS: MORPHINE SULFATE INJECTION 2 MG/ML SYRG IV PRN ×4 (04:36→18:54)
[2021-05-28 05:14] VITALS: BP 112/72
[2021-05-28] MEDS: ACCU-CHEK COMFORT CURVE STRIP VI SCH ×3 (05:50→17:45)
[2021-05-28] MEDS: SODIUM CHLOR 0.9% PF (SALINE LOCK) 10ML VIAL/SYR IV SCH ×3 (05:50→22:16)
[2021-05-28] MEDS: SUCRALFATE 1 GM/10 ML ORAL SUSP PO SCH ×4 (05:51→22:16)
[2021-05-28] MEDS: HYDROcodone-ACET 5/325MG TAB PO PRN ×3 (05:51→17:51)
[2021-05-28] MEDS: InsuLIN REG 1unit/0.01ml Soln (100units/ml) SC SCH ×3 (06:00→17:45)
[2021-05-28 09:00] VITALS: BP 119/73
[2021-05-28] MEDS: PANTOPRAZOLE 40 MG/10 ML VIAL INJ IV SCH ×2 (09:10→22:16)
[2021-05-28] MEDS: FAMOTIDINE (10MG/ML) 2ML VL IV SCH (09:10)
[2021-05-28] MEDS: ENOXAPARIN SOD 80 MG/0.8ML SYRINGE SC SCH (09:10)
[2021-05-28] MEDS: ONDANSETRON HCL 4 MG/2 ML VIAL IV PRN (09:12)
[2021-05-28 12:00] VITALS: BP 129/78
[2021-05-28] MEDS: MEROPENEM 500MG IVPB 50 ML IV SCH (12:25)
[2021-05-28 13:23] LABS: Basophils # (auto) 0 10 ^3/uL (0-0.2); Basophils % (auto) 0.1 % (0.0-2.0); Eosinophils # (auto) 0 10 ^3/uL (0-0.8); Eosinophils % (auto) 0.1 % (0.0-7.0); Hemoglobin 8.5 g/dL (12.2-16.2); Lymphocytes # (auto) 0.4 10 ^3/uL (0.4-5.4); Lymphocytes % (auto) 8.1 % (10.0-50.0); Mean Corpuscular Hemoglobin 35.5 pg (28.0-32.0); Mean Corpuscular Hgb Conc. 32.8 g/dL (32.0-36.0); Monocytes # (auto) 0.5 10 ^3/uL (0-1.3); Monocytes % (auto) 10.1 % (0.0-12.0); Neutrophils # (auto) 3.9 10 ^3/uL (1.6-8.6); Neutrophils % (auto) 81.6 % (37.0-80.0); Nucleated Red Blood Cells % 0.3 %; Red Cell Distribution Width 17.7 % (11.8-14.3); White Blood Cell 4.8 10^3/uL (4.4-10.8)
[2021-05-28 13:43] LABS: Potassium 3.4 mmol/L (3.5-5.1)
[2021-05-28 13:51] LABS: Albumin 1.9 g/dL (3.4-5.0); BUN/Creatinine Ratio 31.6; Bilirubin, Total 0.3 mg/dL (0.2-1.0); Calcium 7.8 mg/dL (8.5-10.1); Magnesium 1.8 mg/dL (1.6-2.6); Total Protein 5.6 g/dL (6.4-8.2)
[2021-05-28] MEDS ORDERED: POTASSIUM PHOSPHATE 22 MEQ in SODIUM CHL 0.9% 100 ML IV ONE (15:00)
[2021-05-28 16:00] VITALS: BP 135/85
[2021-05-28] MEDS ORDERED: MEGESTROL ACET 400MG/10ML ORAL SUSP PO ONE (18:15)
[2021-05-28] MEDS: AMINO ACID INFUSION IN D10W 1,000 ML IV NR ×2 (19:45→20:05)
[2021-05-28] MEDS ORDERED: AMINO ACID INFUSION IN D10W 1,000 ML IV NR (20:00)
[2021-05-28 22:00] VITALS: BP 135/88
[2021-05-28] MEDS: ATORVASTATIN 20 MG TAB PO SCH (22:17)
[2021-05-29] MEDS: MEROPENEM 500MG IVPB 50 ML IV SCH ×2 (00:13→12:00)
[2021-05-29] MEDS: ACCU-CHEK COMFORT CURVE STRIP VI SCH ×4 (00:14→16:40)
[2021-05-29] MEDS: MORPHINE SULFATE INJECTION 2 MG/ML SYRG IV PRN ×4 (00:16→21:28)
[2021-05-29 05:00] VITALS: BP 127/76
[2021-05-29] MEDS: SODIUM CHLOR 0.9% PF (SALINE LOCK) 10ML VIAL/SYR IV SCH ×3 (05:19→21:42)
[2021-05-29] MEDS: InsuLIN REG 1unit/0.01ml Soln (100units/ml) SC SCH ×4 (05:19→16:47)
[2021-05-29] MEDS: MEGESTROL ACET 400MG/10ML ORAL SUSP PO SCH ×2 (06:18→16:49)
[2021-05-29] MEDS: SUCRALFATE 1 GM/10 ML ORAL SUSP PO SCH ×4 (06:19→21:42)
[2021-05-29 07:06] LABS: Potassium 3.2 mmol/L (3.5-5.1)
[2021-05-29 07:14] LABS: Albumin 1.7 g/dL (3.4-5.0); BUN/Creatinine Ratio 35.6; Calcium 7.6 mg/dL (8.5-10.1); Magnesium 1.7 mg/dL (1.6-2.6)
[2021-05-29 07:19] LABS: Bilirubin, Total 0.3 mg/dL (0.2-1.0); Phosphorus 2.3 mg/dL (2.5-4.90); Total Protein 5.3 g/dL (6.4-8.2)
[2021-05-29 09:00] VITALS: BP 127/66
[2021-05-29] MEDS ORDERED: POTASSIUM PHOSPHATE 22 MEQ in SODIUM CHL 0.9% 100 ML IV ONE (09:00)
[2021-05-29] MEDS: FAMOTIDINE (10MG/ML) 2ML VL IV SCH (10:00)
[2021-05-29] MEDS ORDERED: POTASSIUM PHOSPHATE 44 MEQ in D5W 5% 250 ML IV ONE (10:15)
[2021-05-29] MEDS ORDERED: FOLIC ACID 1 MG in D5W 5% 50 ML INJ ONE (10:15)
[2021-05-29] MEDS: PANTOPRAZOLE 40 MG/10 ML VIAL INJ IV SCH ×2 (10:27→21:42)
[2021-05-29] MEDS: ONDANSETRON HCL 4 MG/2 ML VIAL IV PRN (10:31)
[2021-05-29 13:00] VITALS: BP 130/75
[2021-05-29] MEDS ORDERED: LIDOCAINE 2%HCL (LOCAL ANESTH.) INJ 20ML MDV ONE (13:01)
[2021-05-29] MEDS ORDERED: IODIXANOL 320MG/ML 100ML BTL IV ONE (13:02)
[2021-05-29] MEDS ORDERED: fentaNYL CITRATE 100 MCG/2 ML VL ONE (13:04)
[2021-05-29] MEDS ORDERED: MIDAZOLAM HCL 2MG/2ML 2ml VIAL (1mg/ml) ONE (13:05)
[2021-05-29] MEDS ORDERED: levoFLOXacin 750MG 150 ML IV ONE (14:45)
[2021-05-29] MEDS: AMPICILLIN & SULBACTAM 3 GM in NS 0.9% 100 ML IV SCH (16:49)
[2021-05-29 17:00] VITALS: BP 144/92
[2021-05-29] MEDS: HYDROcodone-ACET 5/325MG TAB PO PRN (18:37)
[2021-05-29] MEDS ORDERED: AMINO ACID INFUSION IN D10W 1,000 ML IV NR (20:00)
[2021-05-29] MEDS: ATORVASTATIN 20 MG TAB PO SCH (21:42)
[2021-05-29 22:09] VITALS: BP 131/69
[2021-05-30] MEDS: HYDROcodone-ACET 5/325MG TAB PO PRN ×2 (03:07→14:08)
[2021-05-30] MEDS: AMPICILLIN & SULBACTAM 3 GM in NS 0.9% 100 ML IV SCH ×2 (03:07→17:58)
[2021-05-30 05:00] VITALS: BP 108/54
[2021-05-30] MEDS: SODIUM CHLOR 0.9% PF (SALINE LOCK) 10ML VIAL/SYR IV SCH ×3 (06:35→22:43)
[2021-05-30] MEDS: ACCU-CHEK COMFORT CURVE STRIP VI SCH ×4 (06:47→17:53)
[2021-05-30] MEDS: InsuLIN REG 1unit/0.01ml Soln (100units/ml) SC SCH ×4 (06:47→17:53)
[2021-05-30] MEDS: MEGESTROL ACET 400MG/10ML ORAL SUSP PO SCH ×2 (06:47→17:52)
[2021-05-30] MEDS: SUCRALFATE 1 GM/10 ML ORAL SUSP PO SCH ×4 (06:48→22:44)
[2021-05-30] MEDS: MORPHINE SULFATE INJECTION 2 MG/ML SYRG IV PRN ×3 (06:55→23:08)
[2021-05-30] MEDS ORDERED: ADENOSINE 47 MG in GIVE UN-DILUTED 0 ML IV STA (07:47)
[2021-05-30 08:48] LABS: Albumin 1.7 g/dL (3.4-5.0); Calcium 7.4 mg/dL (8.5-10.1); Magnesium 1.5 mg/dL (1.6-2.6)
[2021-05-30 08:50] LABS: BUN/Creatinine Ratio 37.9
[2021-05-30 08:53] LABS: Bilirubin, Total 0.4 mg/dL (0.2-1.0); Phosphorus 1.8 mg/dL (2.5-4.90); Total Protein 5.6 g/dL (6.4-8.2)
[2021-05-30 08:56] LABS: Potassium 2.9 mmol/L (3.5-5.1)
[2021-05-30 09:00] VITALS: BP 119/67
[2021-05-30] MEDS ORDERED: POTASSIUM PHOSPHATE 26.4 MEQ in SODIUM CHL 0.9% 100 ML IV ONE (09:00)
[2021-05-30] MEDS ORDERED: MAGNESIUM SULFATE 1GM/100ML 100 ML IV SCH (09:00)
[2021-05-30] MEDS ORDERED: POTASSIUM CHLORIDE 20 MEQ, LIDOCAINE 1% (LOCAL ANESTH.) 2 ML in SODIUM CHL 0.9% 100 ML IV ONE (09:00)
[2021-05-30 09:36] VITALS: BP 112/66
[2021-05-30] MEDS ORDERED: levoFLOXacin 250MG 50 ML IV SCH (10:00)
[2021-05-30] MEDS: FAMOTIDINE (10MG/ML) 2ML VL IV SCH (10:00)
[2021-05-30] MEDS: PANTOPRAZOLE 40 MG/10 ML VIAL INJ IV SCH ×2 (12:17→22:43)
[2021-05-30 13:00] VITALS: BP 106/65
[2021-05-30] MEDS: FOLIC ACID 1 MG in D5W 5% 50 ML INJ SCH (14:47)
[2021-05-30] MEDS: ONDANSETRON HCL 4 MG/2 ML VIAL IV PRN ×2 (16:45→23:09)
[2021-05-30 16:59] VITALS: BP 106/70
[2021-05-30] MEDS ORDERED: KETOROLAC TROMETH 30 MG/ML 1ML VIAL IV ONE (18:00)
[2021-05-30] MEDS ORDERED: AMINO ACID INFUSION IN D10W 1,000 ML IV NR (20:00)
[2021-05-30 22:00] VITALS: BP 123/66
[2021-05-30] MEDS: ATORVASTATIN 20 MG TAB PO SCH (22:43)
[2021-05-30] MEDS: MAGNESIUM SULFATE 1GM/100ML 100 ML IV SCH (22:43)
[2021-05-31] MEDS: ACCU-CHEK COMFORT CURVE STRIP VI SCH ×3 (00:12→11:02)
[2021-05-31] MEDS: HYDROcodone-ACET 5/325MG TAB PO PRN ×2 (00:12→05:53)
[2021-05-31] MEDS: MAGNESIUM SULFATE 1GM/100ML 100 ML IV SCH ×2 (01:15)
[2021-05-31] MEDS: AMPICILLIN & SULBACTAM 3 GM in NS 0.9% 100 ML IV SCH ×2 (03:32→14:14)
[2021-05-31] MEDS: MORPHINE SULFATE INJECTION 2 MG/ML SYRG IV PRN ×3 (03:33→16:28)
[2021-05-31 05:00] VITALS: BP 119/67
[2021-05-31] MEDS: MEGESTROL ACET 400MG/10ML ORAL SUSP PO SCH (05:54)
[2021-05-31] MEDS: SUCRALFATE 1 GM/10 ML ORAL SUSP PO SCH ×2 (05:54→11:02)
[2021-05-31] MEDS: SODIUM CHLOR 0.9% PF (SALINE LOCK) 10ML VIAL/SYR IV SCH ×2 (05:54→14:09)
[2021-05-31] MEDS: InsuLIN REG 1unit/0.01ml Soln (100units/ml) SC SCH ×3 (06:00→11:21)
[2021-05-31] MEDS: ONDANSETRON HCL 4 MG/2 ML VIAL IV PRN ×2 (06:03→11:04)
[2021-05-31 07:26] LABS: Albumin 1.6 g/dL (3.4-5.0); Calcium 7.4 mg/dL (8.5-10.1); Magnesium 2.7 mg/dL (1.6-2.6); Potassium 3.2 mmol/L (3.5-5.1)
[2021-05-31 07:30] LABS: BUN/Creatinine Ratio 35.4; Bilirubin, Total 0.3 mg/dL (0.2-1.0); Phosphorus 2.4 mg/dL (2.5-4.90); Total Protein 5.4 g/dL (6.4-8.2)
[2021-05-31 08:42] VITALS: BP 137/75
[2021-05-31] MEDS ORDERED: POTASSIUM CHLORIDE 20 MEQ, LIDOCAINE 1% (LOCAL ANESTH.) 2 ML in SODIUM CHL 0.9% 100 ML IV ONE (09:15)
[2021-05-31] MEDS: FOLIC ACID 1 MG in D5W 5% 50 ML INJ SCH (10:28)
[2021-05-31] MEDS: PANTOPRAZOLE 40 MG/10 ML VIAL INJ IV SCH (10:28)
[2021-05-31] MEDS: FAMOTIDINE (10MG/ML) 2ML VL IV SCH (10:28)
[2021-05-31] MEDS ORDERED: POTASSIUM PHOSPHATE 22 MEQ in SODIUM CHL 0.9% 100 ML IV ONE (13:00)
[2021-05-31 17:06] VITALS: BP 118/66
[2021-05-31] MEDS ORDERED: AMINO ACID INFUSION IN D10W 1,000 ML IV NR (20:00)
== END 2021-05-31 17:37 | disposition hospice, home (50) | DRG 853 ==
LOC: ER 07:27 → EDBD 07:27 → TELE 14:16 → TELE-WESTW 17:47
PROVIDERS: ADMIT Hospitalist; ATTEND Internal Medicine
PROC: 02HV33Z Insertion of Infusion Device into Superior Vena Cava, Percutaneous Approach (ICD-10-PCS; 2021-05-25)
PROC: B548ZZA Ultrasonography of Superior Vena Cava, Guidance (ICD-10-PCS; 2021-05-25)
PROC: 0T25X0Z Change Drainage Device in Kidney, External Approach (ICD-10-PCS; principal; 2021-05-29)
PROC: 0TP93DZ Removal of Intraluminal Device from Ureter, Percutaneous Approach (ICD-10-PCS; 2021-05-29)
PROC: 0T773DZ Dilation of Left Ureter with Intraluminal Device, Percutaneous Approach (ICD-10-PCS; 2021-05-29)
PROC: BT12YZZ Fluoroscopy of Left Kidney using Other Contrast (ICD-10-PCS; 2021-05-29)
DX: A41.9 Sepsis, unspecified organism (principal); G93.41 Metabolic encephalopathy; E43 Unspecified severe protein-calorie malnutrition; I21.A1 Myocardial infarction type 2; I16.9 Hypertensive crisis, unspecified; N13.6 Pyonephrosis; N18.4 Chronic kidney disease, stage 4 (severe); N17.9 Acute kidney failure, unspecified; I13.0 Hypertensive heart and chronic kidney disease with heart failure and stage 1 through stage 4 chronic kidney disease, or unspecified chronic kidney disease; I50.9 Heart failure, unspecified; Z20.822 Contact with and (suspected) exposure to COVID-19; D53.9 Nutritional anemia, unspecified; C67.9 Malignant neoplasm of bladder, unspecified; E78.5 Hyperlipidemia, unspecified; E86.0 Dehydration; M79.89 Other specified soft tissue disorders; R31.9 Hematuria, unspecified; D69.6 Thrombocytopenia, unspecified; R62.7 Adult failure to thrive; I25.10 Atherosclerotic heart disease of native coronary artery without angina pectoris; D25.9 Leiomyoma of uterus, unspecified; E87.6 Hypokalemia; Z82.5 Family history of asthma and other chronic lower respiratory diseases; Z79.01 Long term (current) use of anticoagulants; Z79.82 Long term (current) use of aspirin; Z79.899 Other long term (current) drug therapy; Z80.52 Family history of malignant neoplasm of bladder; Z82.49 Family history of ischemic heart disease and other diseases of the circulatory system; Z85.51 Personal history of malignant neoplasm of bladder; Z90.5 Acquired absence of kidney; Z93.6 Other artificial openings of urinary tract status; Z80.41 Family history of malignant neoplasm of ovary; Z51.5 Encounter for palliative care; Z92.3 Personal history of irradiation; Z86.718 Personal history of other venous thrombosis and embolism; Z68.21 Body mass index [BMI] 21.0-21.9, adult
CPT/HCPCS: 36415; 50435; 70450; 71045; 75984; 76775; 78452; 80053; 81001; 82040; 82607; 82746; 82962; 83036; 83540; 83550; 83735; 83880; 83970; 84100; 84478; 84484; 84550; 85025; 85379; 85610; 85730; 86850; 86900; 86901; 87086; 87088; 87186; 87426; 93005; 93017; 93306; 96365; 96372; 96375; 97163; 99152; C1729; C2625; C9113; G0378; J0153; J0696; J1815; J1885; J2001; J2185; J2250; J2405; J3480; J3490; J7060; Q9967